=== PATIENT | male | born 1950 | race Caucasian/White ===

== ENCOUNTER 2020-06-02 12:20 | Outpatient (REF) | payer MEDICARE, BC, SELFPAY ==
--- NOTE | 2020-06-02 12:38 | ECG_ITS ---
Test Reason : HTN, CP, UNSPEC Blood Pressure : / mmHG Vent. Rate : 076 BPM Atrial Rate : 076 BPM P-R Int : 178 ms QRS Dur : 078 ms QT Int : 394 ms P-R-T Axes : 058 -58 033 degrees QTc Int : 443 ms Normal sinus rhythm Left anterior fascicular block Abnormal ECG When compared with ECG of 24-JUL-2019 09:44, No significant change was found Referred By: Killian Beltran Electronically Signed By:EMMETT LOPEZ MD
--- NOTE | 2020-06-02 12:52 | XR_ITS ---
EXAMINATION: XR CHEST CLINICAL INFORMATION: Hypertension and chest pain COMPARISON: Previous chest x-ray most recent November 2018 TECHNIQUE: 2 views of the chest were obtained. FINDINGS: The cardiac silhouette does not appear enlarged. The thoracic aorta is tortuous. Hilar and mediastinal contours are otherwise unremarkable. The lungs are clear. There is no pleural effusion or pneumothorax. There are degenerative changes of the spine. IMPRESSION: Tortuous descending thoracic aorta similar to previous exam. No evidence for acute disease in the chest.
[2020-06-02 13:05] LABS: MANUAL DIFF FLAG NO
[2020-06-02 13:11] LABS: Basophils Absolute Auto 0.1 X10*3/uL (0.0-0.2); Basophils Percent Auto 0.6 % (0-2); Eosinophils Absolute Auto 0.2 X10*3/uL (0.0-0.4); Eosinophils Percent Auto 2.1 % (0-4); Hematocrit 42.2 % (42-52); Hemoglobin 14.5 g/dl (14.0-18.0); Imm Gran Abs Auto 0.04 X10*3/uL (0.00-0.03); Imm Gran Pct Auto 0.4 % (0.0-0.4); Lymphocytes Absolute Auto 2.1 X10*3/uL (1.2-4.9); Lymphocytes Percent Auto 23.8 % (20-40); Mean Corpuscular HGB Conc 34.4 g/dl (31.0-36.0); Mean Corpuscular Hemoglobin 31.9 pg (27.0-33.0); Mean Platelet Volume 10.1 fL (9.4-12.4); Monocytes Absolute Auto 0.5 X10*3/uL (0.1-1.2); Monocytes Percent Auto 5.7 % (2-11); Neutrophils Percent Auto 67.4 % (45-73); Platelet Count 255 X10*3/uL (160-400); Red Blood Count 4.54 X10*6/uL (4.60-5.80); Red Cell Distribution Width 12.2 % (11.0-16.0)
[2020-06-02 13:28] LABS: C Reactive Protein 0.31 mg/dL (< or = 0.50)
[2020-06-02 14:23] LABS: Erythrocyte Sedimentation Rate 10 MM/HR (0-15)
== END 2020-06-02 12:21 | disposition home or self-care (01) ==
LOC: HO.LAB 12:20
PROVIDERS: PCP Internal Medicine; Visit Provider Internal Medicine
DX: I10 Essential (primary) hypertension (principal); E78.00 Pure hypercholesterolemia, unspecified; R07.9 Chest pain, unspecified
CPT/HCPCS: 36415; 71046; 85025; 85652; 86140; 93005

== ENCOUNTER → 2020-08-26 13:08 | Outpatient (BNVA) | payer MEDICARE, BC, SELFPAY | PROVIDERS: Visit Provider Urology | DX: Z76.89 Persons encountering health services in other specified circumstances (principal) | CPT/HCPCS: 51798; 81002; 99212 ==

== ENCOUNTER 2020-08-26 14:19 | Outpatient (REF) | payer MEDICARE, BC, SELFPAY ==
[2020-08-26 16:41] LABS: Urine Cytology See Pathology rpt
[2020-08-26 17:15] LABS: Blood Urea Nitrogen 25 mg/dL (9-16); Estimated Glomerular Filt Rate > 60
== END 2020-08-26 14:20 | disposition home or self-care (01) ==
LOC: HO.HMGCLDS 14:19
PROVIDERS: PCP Internal Medicine; Visit Provider Urology
DX: R31.0 Gross hematuria (principal)
CPT/HCPCS: 36415; 51798; 81002; 82565; 84520; 88112; 99212

== ENCOUNTER 2020-08-27 14:45 | Outpatient (REF) | payer MEDICARE, BC, SELFPAY ==
[2020-08-27 14:51] LABS: Urine Cytology See Pathology rpt
== END 2020-08-27 14:46 | disposition home or self-care (01) ==
LOC: HO.LNP 14:45
PROVIDERS: Visit Provider Urology
DX: R31.0 Gross hematuria (principal)
CPT/HCPCS: 88112

== ENCOUNTER 2020-09-04 08:07 | Outpatient (REF) | payer MEDICARE, BC, SELFPAY ==
--- NOTE | 2020-09-04 08:09 | CT_ITS ---
EXAMINATION: CT ABDOMEN AND PELVIS WITHOUT AND WITH CONTRAST CLINICAL INFORMATION: Gross hematuria. COMPARISON: None TECHNIQUE: Multidetector volumetric imaging was performed of the abdomen and pelvis before and after the IV administration of 85 mL of Omnipaque 300 intravenous contrast. Sagittal and coronal reformatted images were obtained on the technologist's workstation. This CT examination was performed using dose optimization techniques as appropriate, variously including the following: *Automated exposure control *Adjustment of mA and/or kV according to patient size (this includes techniques or standardized protocols for targeted exams where dose is matched to indication/reason for exam; i.e. extremities or head) *Use of iterative reconstruction technique DLP: 1282 mGy-cm FINDINGS: LUNG BASES: The lung bases are clear. LIVER, GALLBLADDER, AND BILIARY TREE: The liver is normal in size, shape, and attenuation. No focal hepatic lesion or biliary ductal dilatation is present. The gallbladder is unremarkable with no evidence of radiopaque gallstones, gallbladder wall thickening, or obvious pericholecystic inflammatory changes. PANCREAS: Unremarkable. SPLEEN: Unremarkable. ADRENAL GLANDS: Unremarkable. KIDNEYS AND URETERS: The kidneys are normal in size, shape, and attenuation. No hydronephrosis, hydroureter, or calculi seen. There are bilateral extrarenal kidney pelvises. There is mild bilateral perinephric stranding. BLADDER: There is mild bladder wall thickening. GASTROINTESTINAL TRACT: There is diffuse colonic diverticulosis without intramural thickening or pericolic fat stranding. No bowel obstruction seen. The small bowel loops are normal caliber. There are surgical adelita along the proximal ascending colon likely from previous intervention. ABDOMINAL WALL: Small umbilical hernia containing fat is seen. LYMPH NODES: Normal. VASCULAR: Unremarkable. PELVIC VISCERA: The prostate gland is mildly enlarged. Periprostatic fat planes are preserved. OSSEOUS STRUCTURES: No lytic or sclerotic process seen. Small sclerotic lesions right S3 vertebra. CT/CT abdomen pelvis wo/w con IMPRESSION: A few sigmoid and rest of colon diverticulosis with no mural thickening or pericolic fat stranding. No obstruction. No radiopaque urolith. There are bilateral extrarenal kidney pelvises. No hydronephrosis seen. Appendix is not seen with surgical adelita in its place likely from surgical appendectomy.
[2020-09-04] MEDS: iohexoL 350 MG/ML 100 ML INFUS..BTL 85 ML IV (09:48)
== END 2020-09-04 08:08 | disposition home or self-care (01) ==
LOC: HO.CT 08:07
PROVIDERS: Visit Provider Urology
DX: R31.0 Gross hematuria (principal)
CPT/HCPCS: 74178; Q9967

== ENCOUNTER → 2020-09-11 08:50 | Outpatient (BNVA) | payer MEDICARE, BC, SELFPAY | PROVIDERS: PCP Internal Medicine; Visit Provider Urology | DX: N52.9 Male erectile dysfunction, unspecified (principal); R31.0 Gross hematuria | CPT/HCPCS: 52000; 81002; 99212 ==

== ENCOUNTER 2020-09-28 06:02 | Outpatient (REF) | payer MEDICARE, BC, SELFPAY ==
[2020-09-28 12:31] LABS: Prostate Specific Antigen 2.91 ng/mL (<0.05-4.0)
== END 2020-09-28 06:03 | disposition home or self-care (01) ==
LOC: HO.HMGCLDS 06:02
PROVIDERS: PCP Internal Medicine; Visit Provider Urology
DX: R97.20 Elevated prostate specific antigen [PSA] (principal); Z12.5 Encounter for screening for malignant neoplasm of prostate
CPT/HCPCS: 36415; 84153

== ENCOUNTER 2020-12-14 06:25 | Outpatient (REF) | payer MEDICARE, BC, SELFPAY ==
[2020-12-14 11:27] LABS: MANUAL DIFF FLAG NO
[2020-12-14 11:51] LABS: Basophils Absolute Auto 0.1 X10*3/uL (0.0-0.2); Basophils Percent Auto 0.7 % (0-2); Eosinophils Absolute Auto 0.2 X10*3/uL (0.0-0.4); Eosinophils Percent Auto 1.8 % (0-4); Hematocrit 44.5 % (42-52); Hemoglobin 14.8 g/dl (14.0-18.0); Imm Gran Abs Auto 0.03 X10*3/uL (0.00-0.03); Imm Gran Pct Auto 0.4 % (0.0-0.4); Lymphocytes Absolute Auto 1.7 X10*3/uL (1.2-4.9); Mean Corpuscular HGB Conc 33.3 g/dl (31.0-36.0); Mean Corpuscular Hemoglobin 31.6 pg (27.0-33.0); Mean Corpuscular Volume 94.9 fL (80-98); Mean Platelet Volume 10.6 fL (9.4-12.4); Monocytes Absolute Auto 0.7 X10*3/uL (0.1-1.2); Monocytes Percent Auto 7.9 % (2-11); Neutrophils Absolute Auto 5.8 X10*3/uL (2.0-8.3); Neutrophils Percent Auto 69.2 % (45-73); Platelet Count 246 X10*3/uL (160-400); Red Blood Count 4.69 X10*6/uL (4.60-5.80); Red Cell Distribution Width 12.7 % (11.0-16.0); White Blood Count 8.4 X10*3/uL (4.8-10.8)
[2020-12-14 12:07] LABS: Alanine Aminotransferase 23 U/L (0-40); Albumin Level 4.6 g/dL (3.5-5.0); Alkaline Phosphatase 76 U/L (39-117); Anion Gap 13 (12-20); Aspartate Amino Transferase 18 U/L (5-37); Bilirubin Total 1.3 mg/dL (0.0-1.0); Blood Urea Nitrogen 21 mg/dL (9-16); Calcium 9.3 mg/dL (8.4-10.2); Carbon Dioxide 29 mmol/L (22-29); Chloride 102 mmol/L (96-108); Cholesterol 167 mg/dL; Estimated Glomerular Filt Rate > 60; Glucose Fasting 100 mg/dL (60-99); HDL Cholesterol 44 mg/dL; LDL Cholesterol Calculated 73 mg/dl; Potassium 4.2 mmol/L (3.3-5.1); Sodium 140 mmol/L (135-145); Total Protein 7.2 g/dL (6.5-8.0); Triglycerides 252 mg/dL
== END 2020-12-14 06:26 | disposition home or self-care (01) ==
LOC: HO.HMGCLDS 06:25
PROVIDERS: PCP Internal Medicine; Visit Provider Internal Medicine
DX: I10 Essential (primary) hypertension (principal); E78.00 Pure hypercholesterolemia, unspecified
CPT/HCPCS: 36415; 80053; 80061; 85025

== ENCOUNTER 2021-01-25 08:04 | Outpatient (REF) | payer MEDICARE, BC, SELFPAY | END 2021-01-25 08:05 | disposition home or self-care (01) | LOC: HO.HOSX 08:04 | PROVIDERS: Visit Provider Orthopaedic Surgery | DX: M75.101 Unspecified rotator cuff tear or rupture of right shoulder, not specified as traumatic (principal) | CPT/HCPCS: 20610; 99202; J1100 ==

== ENCOUNTER 2021-02-15 08:16 | Outpatient (REF) | payer MEDICARE, BC, SELFPAY ==
--- NOTE | ~2021-02-15 | XR_ITS ---
EXAMINATION: XR SHOULDER, RIGHT CLINICAL INFORMATION: Pain right shoulder. COMPARISON: None TECHNIQUE: Three views of the right shoulder. FINDINGS: There is no visible acute fracture, dislocation or subluxation. There is lateral acromial enthesophyte. There is mild anterior periarticular spurring AC joint. The soft tissues are normal. XR/XR shoulder RT min 2V IMPRESSION: Right lateral acromial spurring. There is no visible acute fracture, dislocation or subluxation.
== END 2021-02-15 08:17 | disposition home or self-care (01) ==
LOC: HO.HOSX 08:16
PROVIDERS: PCP Internal Medicine; Visit Provider Orthopaedic Surgery
DX: M24.811 Other specific joint derangements of right shoulder, not elsewhere classified (principal)
CPT/HCPCS: 73030; 99212

== ENCOUNTER 2021-02-24 07:17 | Outpatient (REF) | payer MEDICARE, BC, SELFPAY ==
--- NOTE | ~2021-02-24 | MR_ITS ---
EXAMINATION: MR SHOULDER WITHOUT CONTRAST, RIGHT CLINICAL INFORMATION: Right shoulder pain. COMPARISON: Radiographs 02/15/2021 TECHNIQUE: MRI of the shoulder without contrast was performed on a high-field scanner. FINDINGS: ROTATOR CUFF: The supraspinatus tendon is completely torn and retracted to the humeral head apex. The infraspinatus tendon is nearly completely torn and retracted as well, with some superficial fibers remaining attached posteriorly. There is severe subscapularis tendinosis with interstitial insertional and bursal surface partial tearing. The teres minor tendon appears intact. No muscle atrophy or fatty infiltration. BICEPS: Mild longitudinal partial tearing of the biceps tendon as it drapes over the lesser tuberosity into the bicipital groove. CORACOACROMIAL ARCH: The undersurface of the acromion is curved with mild spurring laterally. Moderate hypertrophic acromioclavicular osteoarthritis. LABRUM/CAPSULE: Mild degenerative fraying of the posterior superior labrum. Otherwise intact. GLENOHUMERAL JOINT/MARROW: Moderate glenohumeral joint effusion with mild synovitis. Degenerative spurring and mild edema along the greater tuberosity. There is a degenerative cyst anteriorly. MR/MR shoulder RT wo con IMPRESSION: Completely torn and retracted supraspinatus tendon and near-complete tear with retraction of the infraspinatus tendon. Severe subscapularis tendinopathy with interstitial and bursal surface partial tearing. Mild interstitial longitudinal partial tearing of the proximal biceps tendon. Small subacromial spur laterally. Moderate hypertrophic acromioclavicular osteoarthritis. Moderate glenohumeral joint effusion.
== END 2021-02-24 07:18 | disposition home or self-care (01) ==
LOC: HO.MRI 07:17
PROVIDERS: PCP Internal Medicine; Visit Provider Orthopaedic Surgery
DX: M24.811 Other specific joint derangements of right shoulder, not elsewhere classified (principal)
CPT/HCPCS: 73221

== ENCOUNTER → 2021-03-08 11:55 | Outpatient (BNVA) | payer MEDICARE, BC, SELFPAY | PROVIDERS: PCP Internal Medicine; Visit Provider Orthopaedic Surgery | DX: M75.101 Unspecified rotator cuff tear or rupture of right shoulder, not specified as traumatic (principal) | CPT/HCPCS: 99212 ==

== ENCOUNTER 2021-03-17 10:23 | Day surgery (SDC) | payer MEDICARE, BC, SELFPAY ==
--- NOTE | 2021-03-15 14:05 | P.CONAN_ITS ---
Documented by User: Maritza Pope 03/16/21 08:30 HPI - Anesthesia Eval Consult details Narrative: 70yo M for Right Arthroscopic Rotator Cuff Repair PMFSH Active Problems Active Problems: All Active Problems (Updated 03/08/21 @ 12:50 by Jim Mehta MD) Rotator cuff tear, right (Acute) Internal derangement of right shoulder (Acute) Painful arc syndrome of right shoulder (Acute) Erectile dysfunction (Acute) Gross hematuria (Acute) Past Medical History Medical History BPH (benign prostatic hyperplasia) Diverticulitis Elevated PSA Erectile dysfunction Gross hematuria Left inguinal hernia Recurrent left inguinal hernia Surgical History Surgical History History of appendectomy History of hernia repair History of prostate biopsy Social History Social History Alcohol intake: never Patient Tobacco Use Status: Never used Tobacco Use of substances other than those prescribed or required for medical reasons: No Are you DNR?: No Advance Directives: No Advance Directives Information Provided: Yes Current occupational status: retired Current occupation: right handed. Meds Allergies Allergy/AdvReac Type Severity Reaction Status Date / Time HAYFEVER Allergy Mild ITCHY EYES Uncoded 03/17/21 11:01 Home Medications Medication Instructions Recorded Confirmed Last Taken Type amlodipine 5 mg-benazepril 10 mg 1 cap PO DAILY 08/26/20 08/26/20 03/17/21 05:00 History capsule candesartan 32 1 tab PO DAILY 08/26/20 08/26/20 03/17/21 05:00 History mg-hydrochlorothiazide 12.5 mg tablet finasteride 5 mg tablet 5 mg PO DAILY 08/26/20 08/26/20 Unknown History simvastatin 40 mg tablet 40 mg PO BEDTIME 08/26/20 08/26/20 Unknown History Exam Exam Date and Time: March 15, 2021 140 Pertinent Lab Results Pertinent Lab Results: Laboratory Tests 12/14/20 12/14/20 06:32 06:32 WBC 8.4 Hgb 14.8 Hct 44.5 Plt Count 246 Sodium 140 Potassium 4.2 Chloride 102 Carbon Dioxide 29 BUN 21 H Creatinine 0.91 Narrative Narrative: EKG 05/2020 Vent. Rate : 076 BPM Atrial Rate : 076 BPM P-R Int : 178 ms QRS Dur : 078 ms QT Int : 394 ms P-R-T Axes : 058 -58 033 degrees QTc Int : 443 ms Normal sinus rhythm Left anterior fascicular block Abnormal ECG When compared with ECG of 24-JUL-2019 09:44, No significant change was found Assessment and Plan Assessment Anesthesia Assessment: Chart Reviewed Documented by User: Celsa Dawson 03/17/21 12:06 [facility] Past Medical History Medical History BPH (benign prostatic hyperplasia) Diverticulitis Elevated PSA Erectile dysfunction Gross hematuria Left inguinal hernia Recurrent left inguinal hernia Surgical History Surgical History History of appendectomy History of hernia repair History of prostate biopsy Social History Social History Alcohol intake: never Patient Tobacco Use Status: Never used Tobacco Use of substances other than those prescribed or required for medical reasons: No Are you DNR?: No Advance Directives: No Advance Directives Information Provided: Yes Current occupational status: retired Current occupation: right handed. Meds Allergies Allergy/AdvReac Type Severity Reaction Status Date / Time HAYFEVER Allergy Mild ITCHY EYES Uncoded 03/17/21 11:01 Home Medications Medication Instructions Recorded Confirmed Last Taken Type amlodipine 5 mg-benazepril 10 mg 1 cap PO DAILY 08/26/20 08/26/20 03/17/21 05:00 History capsule candesartan 32 1 tab PO DAILY 08/26/20 08/26/20 03/17/21 05:00 History mg-hydrochlorothiazide 12.5 mg tablet finasteride 5 mg tablet 5 mg PO DAILY 08/26/20 08/26/20 Unknown History simvastatin 40 mg tablet 40 mg PO BEDTIME 08/26/20 08/26/20 Unknown History Exam Airway Mallampati Class: II TM Dist: >3cm Neck ROM: Full Assessment and Plan Assessment Anesthesia Assessment: Anesthesia Plan Discussed and Chart Reviewed Final Anesthetic Review NPO: Yes ASA Class: II Final Preanesthetic Review: No Changes in Pt Med Stat, Meds/Allgs Chart Revie wed, Consent Obtained/Reviewed and Anes Risks/Benef Reviewed Patient Risk: Low Procedure Risk: Low Assessment/Block/Sedation in SS: Assess/Block/Sedation-SS Anesthetic Plan Anesthetic Plan: GA and Regional Block Disposition: Standard PACU
[2021-03-17] VITALS (9 sets, daily range): BP systolic 88–112; BP diastolic 49–67; PULSE 67–81; RESP 16–20; TEMP 36.4–36.7; O2SAT 92–97; BMI 30.9
--- NOTE | 2021-03-17 11:14 | MHC.SHP ---
Pre-Procedural Eval Section A Date of Service: 03/17/21 The patient is an INPATIENT: No Changes since office visit: Yes Patient answered all questions; No Cold of Flu in the past 2 weeks, No New Medical Problems and No Changes in Medication The History & Physical has been completed within 30 days and I have reviewed it.: Yes Section B Chief Complaint: rotator cuff tear Allergies: Allergies Allergy/AdvReac Type Severity Reaction Status Date / Time HAYFEVER Allergy Mild ITCHY EYES Uncoded 03/17/21 11:01 Plan I have reviewed the history and physical and performed a pertinent physical examination on my patient. No changes have occurred unless specified.
[2021-03-17] MEDS: Lactated Ringers 1,000 ML 100 ML IVCONT (11:17)
--- NOTE | 2021-03-17 14:40 | PM.OP ---
Brief Operative Note Date of Service: 03/17/21 Pre-op diagnosis: right rtc tear Procedure: right rtc repair with circumeferential labral debridement and biceps tenotomy Implants: Devlin and nephew helacoil double loaded x3 and PEEK healcoil x 3 Surgeon: Jim Mehta MD Was an Receptionist Scheduler used for this Procedure?: Yes Receptionist Scheduler: Tamara Polk Estimated blood loss (mL): 5 IV fluids (mL): 1,000 Pathology: none sent Condition: stable Disposition: PACU
--- NOTE | 2021-03-25 14:54 | P.OP_ITS ---
Operative Note Operative Note Date of Service: 03/17/21 Narrative: Pre-op diagnosis: right rtc tear Procedure: right rtc repair with circumeferential labral debridement and biceps tenotomy Implants: Devlin and nephew helacoil double loaded x3 and PEEK healcoil x 3 Surgeon: Jim Mehta MD Was an Digital Photographic Printer used for this Procedure?: Yes Digital Photographic Printer: Tamara Polk Estimated blood loss (mL): 5 IV fluids (mL): 1,000 Pathology: none sent Condition: stable Disposition: PACU Procedure in detail: Patient brought the operating placed in the beach chair position and his right upper extremity was prepped and draped in standard sterile fashion. A time-out was called to identify proper site proper procedure proper surgeon IV antibiotics per weight were administered. I began by making a stab incision posterolaterally and placing my blunt trocar atraumatically into the glenohumeral joint. I then insufflated joint stab she outside in anterosuperior portal. I began my diagnostic arthroscopy. There were some scattered grade 1 changes in the glenoid and the biceps and superior labrum were torn approximately 75% at the biceps volume was absent and a biceps tenotomy was performed. I circumferentially debrided the labrum down to stable edges and examined subscapularis which had a small partial tearing of leading edge. I then visualized cuff and there was clear retracted rotator cuff tear. I entered the subacromial space and established an outside in lateral portal. The cuff was retracted but mobile to the footprint. Therefore I debrided any unhealthy appearing tissue and then placed 3 medial row double loaded anchors and ran these through the cuff and then using cross bridge technique compressed the cuff to the footprint using 3 lateral row anchors. I had excellent reproduction of the normal anatomy and was very happy with the repair. Prior to this I did debride down the footprint to bleeding bone. I then examined the construct was satisfied with the stability I. I performed a minimal subacromial decompression and instrumentation was removed and portals were closed with nylon. Patient was placed in sterile dressing extubated brought to recovery room stable condition there were no known complications. He should adhere to a large rotator cuff repair protocol.
== END 2021-03-17 16:55 | disposition home or self-care (01) ==
PROVIDERS: PCP Internal Medicine; Visit Provider Orthopaedic Surgery
PROC: (CPT 29827; principal; 2021-03-17 12:00)
DX: M75.101 Unspecified rotator cuff tear or rupture of right shoulder, not specified as traumatic (principal); M24.9 Joint derangement, unspecified; M75.81 Other shoulder lesions, right shoulder; Z79.899 Other long term (current) drug therapy; Z87.891 Personal history of nicotine dependence
CPT/HCPCS: 29827; 29826; 29822; C1713; J0690; J1100; J2250; J2405; J3010

== ENCOUNTER → 2021-03-29 11:14 | Outpatient (BNVA) | payer MEDICARE, BC, SELFPAY | PROVIDERS: PCP Internal Medicine; Visit Provider Physician Assistant | DX: M75.101 Unspecified rotator cuff tear or rupture of right shoulder, not specified as traumatic (principal) | CPT/HCPCS: 99212 ==

== ENCOUNTER → 2021-04-30 08:37 | Outpatient (BNVA) | payer MEDICARE, BC, SELFPAY | PROVIDERS: PCP Internal Medicine; Visit Provider Physician Assistant | DX: M75.101 Unspecified rotator cuff tear or rupture of right shoulder, not specified as traumatic (principal); M24.811 Other specific joint derangements of right shoulder, not elsewhere classified | CPT/HCPCS: 99212 ==

== ENCOUNTER 2021-05-25 12:32 | Outpatient (REF) | payer MEDICARE, BC, SELFPAY ==
--- NOTE | ~2021-05-25 | XR_ITS ---
EXAMINATION: XR CHEST CLINICAL INFORMATION: Increased sputum production COMPARISON: Chest radiographs 06/02/2020, 12/06/2018 TECHNIQUE: 2 views of the chest were obtained. FINDINGS: There is subtle small airspace opacity just lateral to cardiac apex in region of inferior lingula which may represent early subsegmental infiltrate. The remainder the lungs are clear. There is no lobar segmental airspace consolidation or other groundglass opacities. The costophrenic sulci are well-defined. There is no effusion. The heart is normal in size. The hilar and mediastinal contours are normal. No acute bony abnormality. XR/XR chest 2V IMPRESSION: Probable small airspace opacity inferior lingula left anterior base. No effusion. Suggest follow-up imaging in 4-8 weeks to confirm resolution.
[2021-05-25 13:46] LABS: MANUAL DIFF FLAG NO
[2021-05-25 13:50] LABS: Basophils Absolute Auto 0.1 X10*3/uL (0.0-0.2); Basophils Percent Auto 0.7 % (0-2); Eosinophils Absolute Auto 0.3 X10*3/uL (0.0-0.4); Eosinophils Percent Auto 3.2 % (0-4); Hematocrit 41.1 % (42-52); Hemoglobin 14.6 g/dl (14.0-18.0); Imm Gran Abs Auto 0.04 X10*3/uL (0.00-0.03); Imm Gran Pct Auto 0.5 % (0.0-0.4); Lymphocytes Absolute Auto 2.2 X10*3/uL (1.2-4.9); Lymphocytes Percent Auto 26.7 % (20-40); Mean Corpuscular HGB Conc 35.5 g/dl (31.0-36.0); Mean Corpuscular Hemoglobin 32.8 pg (27.0-33.0); Mean Corpuscular Volume 92.4 fL (80-98); Mean Platelet Volume 10.3 fL (9.4-12.4); Monocytes Absolute Auto 0.7 X10*3/uL (0.1-1.2); Monocytes Percent Auto 8.1 % (2-11); Neutrophils Absolute Auto 5.1 X10*3/uL (2.0-8.3); Neutrophils Percent Auto 60.8 % (45-73); Platelet Count 258 X10*3/uL (160-400); Red Blood Count 4.45 X10*6/uL (4.60-5.80); Red Cell Distribution Width 13.3 % (11.0-16.0); White Blood Count 8.4 X10*3/uL (4.8-10.8)
[2021-05-25 14:20] LABS: Alanine Aminotransferase 31 U/L (0-40); Albumin Level 4.4 g/dL (3.5-5.0); Alkaline Phosphatase 85 U/L (39-117); Anion Gap 14 (12-20); Aspartate Amino Transferase 23 U/L (5-37); Bilirubin Total 0.5 mg/dL (0.0-1.0); Blood Urea Nitrogen 17 mg/dL (9-16); C Reactive Protein 0.67 mg/dL (< or = 0.50); Calcium 9.9 mg/dL (8.4-10.2); Carbon Dioxide 29 mmol/L (22-29); Chloride 103 mmol/L (96-108); Estimated Glomerular Filt Rate > 60; Glucose Random 124 mg/dL (60-115); Potassium 3.9 mmol/L (3.3-5.1); Sodium 142 mmol/L (135-145); Total Protein 7.5 g/dL (6.5-8.0)
[2021-05-25 14:32] LABS: Erythrocyte Sedimentation Rate 11 MM/HR (0-15)
== END 2021-05-25 12:33 | disposition home or self-care (01) ==
LOC: HO.HMGCX 12:32
PROVIDERS: PCP Internal Medicine; Visit Provider Internal Medicine
DX: R09.3 Abnormal sputum (principal); Z20.822 Contact with and (suspected) exposure to COVID-19
CPT/HCPCS: 71046; 80053; 85025; 85652; 86140; C9803; U0003; U0005

== ENCOUNTER → 2021-06-11 08:35 | Outpatient (BNVA) | payer MEDICARE, BC, SELFPAY | PROVIDERS: PCP Internal Medicine; Visit Provider Physician Assistant | DX: Z98.890 Other specified postprocedural states (principal); J30.1 Allergic rhinitis due to pollen | CPT/HCPCS: 99212 ==

== ENCOUNTER 2021-06-15 06:01 | Outpatient (REF) | payer MEDICARE, BC, SELFPAY ==
--- NOTE | ~2021-06-15 | XR_ITS ---
EXAMINATION: XR CHEST CLINICAL INFORMATION: Hypertension COMPARISON: Previous chest x-ray most recent 05/25/2021 TECHNIQUE: 2 views of the chest were obtained. FINDINGS: The cardiac silhouette does not appear enlarged. The thoracic aorta is tortuous. Hilar and mediastinal contours are otherwise unremarkable. There is mild right apical pleural thickening that is stable. The lungs are otherwise clear. There is no pleural effusion or pneumothorax. There are degenerative changes of the spine. XR/XR chest 2V IMPRESSION: No evidence for acute disease in the chest.
[2021-06-15 11:24] LABS: MANUAL DIFF FLAG NO
[2021-06-15 11:30] LABS: Appearance Urine TURBID; Color Urine YELLOW; Glucose Urine UA NEG (NEG); Leukocyte Esterase Urine NEG (NEG); Nitrite Urine NEG (NEG); Specific Gravity - Urine >= 1.030 (1.005-1.025); Urine Blood NEG (NEG); Urine Ketones NEG (NEG); Urine Protein NEG (NEG-TRACE)
[2021-06-15 11:35] LABS: Basophils Absolute Auto 0.1 X10*3/uL (0.0-0.2); Basophils Percent Auto 0.6 % (0-2); Eosinophils Absolute Auto 0.2 X10*3/uL (0.0-0.4); Eosinophils Percent Auto 1.8 % (0-4); Hematocrit 42.8 % (42-52); Hemoglobin 14.5 g/dl (14.0-18.0); Imm Gran Abs Auto 0.04 X10*3/uL (0.00-0.03); Imm Gran Pct Auto 0.4 % (0.0-0.4); Lymphocytes Absolute Auto 1.9 X10*3/uL (1.2-4.9); Lymphocytes Percent Auto 19.7 % (20-40); Mean Corpuscular HGB Conc 33.9 g/dl (31.0-36.0); Mean Corpuscular Hemoglobin 31.6 pg (27.0-33.0); Mean Corpuscular Volume 93.2 fL (80-98); Mean Platelet Volume 10.9 fL (9.4-12.4); Monocytes Absolute Auto 0.7 X10*3/uL (0.1-1.2); Monocytes Percent Auto 7.5 % (2-11); Neutrophils Absolute Auto 6.9 X10*3/uL (2.0-8.3); Platelet Count 281 X10*3/uL (160-400); Red Blood Count 4.59 X10*6/uL (4.60-5.80); Red Cell Distribution Width 12.7 % (11.0-16.0); White Blood Count 9.8 X10*3/uL (4.8-10.8)
[2021-06-15 11:51] LABS: Alanine Aminotransferase 29 U/L (0-40); Albumin Level 4.4 g/dL (3.5-5.0); Alkaline Phosphatase 74 U/L (39-117); Anion Gap 13 (12-20); Aspartate Amino Transferase 23 U/L (5-37); Blood Urea Nitrogen 18 mg/dL (9-16); C Reactive Protein 3.34 mg/dL (< or = 0.50); Calcium 9.3 mg/dL (8.4-10.2); Carbon Dioxide 26 mmol/L (22-29); Chloride 104 mmol/L (96-108); Cholesterol 169 mg/dL; Estimated Glomerular Filt Rate > 60; Glucose Fasting 104 mg/dL (60-99); HDL Cholesterol 44 mg/dL; LDL Cholesterol Calculated 82 mg/dl; Sodium 139 mmol/L (135-145); Total Protein 7.2 g/dL (6.5-8.0); Triglycerides 218 mg/dL
[2021-06-15 11:52] LABS: Amorphous Sediment Urine 4+ /LPF; RBC Urine 0 /HPF (0); WBC Urine 0 /HPF (0-4)
[2021-06-15 12:03] LABS: PSA,Total (Free>4and<10) 2.89 ng/mL (0.00-4.00); Thyroid Stimulating Hormone 2.81 uIU/mL (0.32-4.0); Vitamin D 25-OH Total 37.7 ng/mL (>30)
[2021-06-15 12:38] LABS: Erythrocyte Sedimentation Rate 26 MM/HR (0-15)
== END 2021-06-15 06:02 | disposition home or self-care (01) ==
LOC: HO.HMGCX 06:01
PROVIDERS: PCP Internal Medicine; Visit Provider Internal Medicine
DX: Z12.5 Encounter for screening for malignant neoplasm of prostate (principal); I10 Essential (primary) hypertension; E78.00 Pure hypercholesterolemia, unspecified; N40.0 Benign prostatic hyperplasia without lower urinary tract symptoms
CPT/HCPCS: 36415; 71046; 80053; 80061; 81001; 82306; 84153; 84443; 85025; 85652; 86140

== ENCOUNTER 2021-07-21 06:01 | Outpatient (REF) | payer MEDICARE, BC, SELFPAY ==
[2021-07-21 12:34] LABS: Prostate Specific Antigen 2.96 ng/mL (<0.05-4.0)
== END 2021-07-21 06:02 | disposition home or self-care (01) ==
LOC: HO.HMGCLDS 06:01
PROVIDERS: PCP Internal Medicine; Visit Provider Urology
DX: Z12.5 Encounter for screening for malignant neoplasm of prostate (principal); R97.20 Elevated prostate specific antigen [PSA]
CPT/HCPCS: 36415; 84153

== ENCOUNTER → 2021-08-06 09:20 | Outpatient (BNVA) | payer MEDICARE, BC, SELFPAY | PROVIDERS: PCP Internal Medicine; Visit Provider Physician Assistant | DX: Z47.89 Encounter for other orthopedic aftercare (principal); Z98.890 Other specified postprocedural states | CPT/HCPCS: 99212 ==

== ENCOUNTER 2021-08-09 07:00 | Outpatient (RCR) | payer MEDICARE, BC, SELFPAY ==
--- NOTE | 2021-03-25 15:15 | MHC.PT.EP ---
[facility] [place] Office [place] Office [place] Office [address] [phone] F: [phone] F: [phone] F: [phone] F: [phone] Physical Therapy Plan of Care Date of Evaluation: Date of Surgery: 03/17/21 Diagnosis: R rotator cuff repair Assessment: Patient is a 70 year old R handed male who presents with s/s consistent with R rotator cuff repair. He is not currently working but would like to get back to golf and biking. Patient past medical history includes L rotator cuff repair 1.5-2 years ago. Current impairments include pain, ROM, posture, strength, safety, independence, activity tolerance and functional mobility. Functional limitations include decreased ability to reach, lift, carry, push, pull, sleep, dress, bathe, and perform weight bearing activities.. Patient is motivated with good rehab potential. Skilled PT will address impairments and functional limitations in order to achieve goals. Frequency and Duration: The patient will be seen 2x/week for 8 weeks Short Term Goals: I with HEP - 2 week PROM flexion 120, abd 120 - 5 weeks I with self care, infection free - 3 weeks Jail Goals: Strength 4-/5 - 8 weeks Able to demonstrated 140 AROM flexion without UT compensation - 8 weeks Treatment Plan: Modalities to reduce pain, spasms and effusion. Manual therapy to restore motion and function. Therapeutic exercise to improve strength and flexibility. Neuromuscular re-education for posture and balance. Therapeutic activities to return to functional activities of daily living. Electronically signed by: Zohaib Henriquez, PT Please sign and return to therapist. Thank you for your referral.
--- NOTE | 2021-09-10 07:36 | MHC.PT.DC ---
[facility] [place] Office [place] Office [place] Office [address] [phone] F: [phone] F: [phone] F: [phone] F: [phone] Physical Therapy Discharge Report Diagnosis: R rotator cuff repair Date of Surgery: 03/17/21 Date of Evaluation: 03/24/21 Date of Discharge: 08/25/21 Treatments to Date: 34 Cancellations to Date: 0 No Shows to Date: 0 Discharge Status: Achieved Goals Independent with HEP Discharge Summary: Pt progressed very well with no setbacks over the course of skilled PT. He is I with HEP and will continue at home to progress towards functional activities such as golf and reaching into cabinets. All questions answered and no concerns at this time. Electronically signed by: Zohaib Henriquez, PT Please sign and return to therapist. Thank you for your referral.
== END 2021-08-25 08:00 | disposition home or self-care (01) ==
LOC: HO.PTCHIC 07:00
PROVIDERS: Visit Provider Orthopaedic Surgery
DX: M75.101 Unspecified rotator cuff tear or rupture of right shoulder, not specified as traumatic (principal)
CPT/HCPCS: 97110; 97140; 97162

== ENCOUNTER 2021-11-26 06:02 | Outpatient (REF) | payer MEDICARE, BC, SELFPAY ==
[2021-11-26 11:43] LABS: MANUAL DIFF FLAG NO
[2021-11-26 11:51] LABS: Basophils Absolute Auto 0.1 X10*3/uL (0.0-0.2); Basophils Percent Auto 0.6 % (0-2); Eosinophils Absolute Auto 0.2 X10*3/uL (0.0-0.4); Eosinophils Percent Auto 2.6 % (0-4); Hematocrit 42.9 % (42.0-52.0); Hemoglobin 14.5 g/dl (14.0-18.0); Imm Gran Abs Auto 0.02 X10*3/uL (0.00-0.03); Imm Gran Pct Auto 0.2 % (0.0-0.4); Lymphocytes Absolute Auto 2.1 X10*3/uL (1.2-4.9); Lymphocytes Percent Auto 25.8 % (20-40); Mean Corpuscular HGB Conc 33.8 g/dl (31.0-36.0); Mean Corpuscular Hemoglobin 31.7 pg (27.0-33.0); Mean Corpuscular Volume 93.9 fL (80.0-98.0); Monocytes Absolute Auto 0.7 X10*3/uL (0.1-1.2); Monocytes Percent Auto 8.2 % (2-11); Neutrophils Absolute Auto 5.1 x10*3/uL (2.0-8.3); Neutrophils Percent Auto 62.6 % (45-73); Platelet Count 248 X10*3/uL (160-400); Red Blood Count 4.57 X10*6/uL (4.60-5.80); Red Cell Distribution Width 13.2 % (11.0-16.0); White Blood Count 8.1 X10*3/uL (4.8-10.8)
[2021-11-26 12:20] LABS: Alanine Aminotransferase 26 U/L (0-40); Albumin Level 4.3 g/dL (3.5-5.0); Alkaline Phosphatase 73 U/L (39-117); Anion Gap 14 (12-20); Aspartate Amino Transferase 20 U/L (5-37); Bilirubin Total 0.9 mg/dL (0.0-1.0); Blood Urea Nitrogen 25 mg/dL (9-16); C Reactive Protein 0.41 mg/dL (< or = 0.50); Carbon Dioxide 22 mmol/L (22-29); Chloride 107 mmol/L (96-108); Cholesterol 171 mg/dL; Estimated Glomerular Filt Rate > 60; Glucose Fasting 96 mg/dL (60-99); HDL Cholesterol 41 mg/dL; LDL Cholesterol Calculated 71 mg/dl; Potassium 3.8 mmol/L (3.3-5.1); Sodium 139 mmol/L (135-145); Triglycerides 296 mg/dL
[2021-11-26 12:30] LABS: Erythrocyte Sedimentation Rate 7 MM/HR (0-15)
[2021-11-26 12:45] LABS: Thyroid Stimulating Hormone 2.93 uIU/mL (0.32-4.0); Vitamin D 25-OH Total 38.4 ng/mL (>30)
== END 2021-11-26 06:03 | disposition home or self-care (01) ==
LOC: HO.HMGCLDS 06:02
PROVIDERS: PCP Internal Medicine; Visit Provider Internal Medicine
DX: I10 Essential (primary) hypertension (principal)
CPT/HCPCS: 36415; 80053; 80061; 82306; 84443; 85025; 85652; 86140

== ENCOUNTER 2022-05-05 07:00 | Outpatient (RCR) | payer MEDICARE, BC, SELFPAY | END 2022-08-03 07:41 | disposition home or self-care (01) | LOC: HO.PTCHIC 07:00 | PROVIDERS: PCP Internal Medicine; Visit Provider Internal Medicine | DX: S76.912A Strain of unspecified muscles, fascia and tendons at thigh level, left thigh, initial encounter (principal) | CPT/HCPCS: 97110; 97140; 97162 ==

== ENCOUNTER 2022-06-24 10:16 | Outpatient (REF) | payer MEDICARE, BC, SELFPAY ==
--- NOTE | ~2022-06-24 | XR_ITS ---
EXAMINATION: XR CHEST CLINICAL INFORMATION: Cough COMPARISON: Previous chest x-ray most recent May 2021 TECHNIQUE: 2 views of the chest were obtained. FINDINGS: The cardiac and mediastinal contours are stable. The thoracic aorta is slightly tortuous but unchanged. Hilar contours are otherwise unremarkable. The lungs are clear. No pleural effusion or pneumothorax. There are degenerative changes of the spine. XR/XR chest 2V IMPRESSION: No evidence for acute disease in the chest.
[2022-06-24 11:27] LABS: MANUAL DIFF FLAG NO
[2022-06-24 11:50] LABS: Basophils Percent Auto 0.5 % (0-2); Eosinophils Absolute Auto 0.2 X10*3/uL (0.0-0.4); Eosinophils Percent Auto 1.9 % (0-4); Hematocrit 39.8 % (42.0-52.0); Hemoglobin 14.1 g/dl (14.0-18.0); Imm Gran Abs Auto 0.05 X10*3/uL (0.00-0.03); Imm Gran Pct Auto 0.6 % (0.0-0.4); Lymphocytes Absolute Auto 1.9 X10*3/uL (1.2-4.9); Lymphocytes Percent Auto 21.7 % (20-40); Mean Corpuscular HGB Conc 35.4 g/dl (31.0-36.0); Mean Corpuscular Hemoglobin 31.9 pg (27.0-33.0); Mean Platelet Volume 10.6 fL (9.4-12.4); Monocytes Absolute Auto 0.7 X10*3/uL (0.1-1.2); Monocytes Percent Auto 8.3 % (2-11); Neutrophils Absolute Auto 5.8 x10*3/uL (2.0-8.3); Platelet Count 265 X10*3/uL (160-400); Red Blood Count 4.42 X10*6/uL (4.60-5.80); Red Cell Distribution Width 12.1 % (11.0-16.0); White Blood Count 8.6 X10*3/uL (4.8-10.8)
[2022-06-24 12:17] LABS: Alanine Aminotransferase 29 U/L (0-40); Albumin Level 4.4 g/dL (3.5-5.0); Alkaline Phosphatase 77 U/L (39-117); Anion Gap 16 (12-20); Aspartate Amino Transferase 24 U/L (5-37); Bilirubin Total 0.6 mg/dL (0.0-1.0); Blood Urea Nitrogen 24 mg/dL (9-16); Calcium 9.3 mg/dL (8.4-10.2); Carbon Dioxide 23 mmol/L (22-29); Chloride 104 mmol/L (96-108); Estimated Glomerular Filt Rate > 60; Glucose Random 104 mg/dL (60-115); Sodium 139 mmol/L (135-145); Total Protein 7.4 g/dL (6.5-8.0)
== END 2022-06-24 10:17 | disposition home or self-care (01) ==
LOC: HO.HMGCX 10:16
PROVIDERS: PCP Internal Medicine; Visit Provider Internal Medicine
DX: R05.9 Cough, unspecified (principal)
CPT/HCPCS: 36415; 71046; 80053; 85025

== ENCOUNTER 2022-06-29 06:02 | Outpatient (REF) | payer MEDICARE, BC, SELFPAY ==
[2022-06-29 11:24] LABS: MANUAL DIFF FLAG NO
[2022-06-29 11:31] LABS: Basophils Absolute Auto 0.1 X10*3/uL (0.0-0.2); Basophils Percent Auto 0.6 % (0-2); Eosinophils Absolute Auto 0.2 X10*3/uL (0.0-0.4); Eosinophils Percent Auto 2.9 % (0-4); Hematocrit 42.3 % (42.0-52.0); Hemoglobin 14.4 g/dl (14.0-18.0); Imm Gran Abs Auto 0.02 X10*3/uL (0.00-0.03); Imm Gran Pct Auto 0.2 % (0.0-0.4); Lymphocytes Percent Auto 23.3 % (20-40); Mean Corpuscular Hemoglobin 31.3 pg (27.0-33.0); Mean Platelet Volume 11.2 fL (9.4-12.4); Monocytes Absolute Auto 0.7 X10*3/uL (0.1-1.2); Monocytes Percent Auto 8.4 % (2-11); Neutrophils Absolute Auto 5.4 x10*3/uL (2.0-8.3); Neutrophils Percent Auto 64.6 % (45-73); Platelet Count 246 X10*3/uL (160-400); Red Cell Distribution Width 12.4 % (11.0-16.0); White Blood Count 8.4 X10*3/uL (4.8-10.8)
[2022-06-29 12:01] LABS: Alanine Aminotransferase 26 U/L (0-40); Albumin Level 4.4 g/dL (3.5-5.0); Alkaline Phosphatase 68 U/L (39-117); Anion Gap 17 (12-20); Aspartate Amino Transferase 21 U/L (5-37); Bilirubin Total 0.7 mg/dL (0.0-1.0); Blood Urea Nitrogen 25 mg/dL (9-16); Calcium 9.1 mg/dL (8.4-10.2); Carbon Dioxide 24 mmol/L (22-29); Chloride 105 mmol/L (96-108); Cholesterol 198 mg/dL; Estimated Glomerular Filt Rate > 60; Glucose Random 94 mg/dL (60-115); HDL Cholesterol 42 mg/dL; LDL Cholesterol Calculated 85 mg/dl; Sodium 142 mmol/L (135-145); Total Protein 7.3 g/dL (6.5-8.0); Triglycerides 356 mg/dL
== END 2022-06-29 06:03 | disposition home or self-care (01) ==
LOC: HO.HMGCLDS 06:02
PROVIDERS: PCP Internal Medicine; Visit Provider Internal Medicine
DX: R05.9 Cough, unspecified (principal); E78.00 Pure hypercholesterolemia, unspecified
CPT/HCPCS: 36415; 80053; 80061; 85025

== ENCOUNTER 2022-12-26 06:03 | Outpatient (REF) | payer MEDICARE, BC, SELFPAY ==
[2022-12-26 11:33] LABS: MANUAL DIFF FLAG NO
[2022-12-26 11:40] LABS: Basophils Absolute Auto 0.1 X10*3/uL (0.0-0.2); Eosinophils Absolute Auto 0.2 X10*3/uL (0.0-0.4); Eosinophils Percent Auto 3.2 % (0-4); Hematocrit 43.8 % (42.0-52.0); Hemoglobin 14.9 g/dl (14.0-18.0); Imm Gran Abs Auto 0.02 X10*3/uL (0.00-0.03); Imm Gran Pct Auto 0.3 % (0.0-0.4); Lymphocytes Percent Auto 29.1 % (20-40); Mean Corpuscular Hemoglobin 31.7 pg (27.0-33.0); Mean Corpuscular Volume 93.2 fL (80.0-98.0); Mean Platelet Volume 10.7 fL (9.4-12.4); Monocytes Absolute Auto 0.5 X10*3/uL (0.1-1.2); Monocytes Percent Auto 7.3 % (2-11); Neutrophils Absolute Auto 4.1 x10*3/uL (2.0-8.3); Neutrophils Percent Auto 59.1 % (45-73); Platelet Count 231 X10*3/uL (160-400); Red Cell Distribution Width 12.8 % (11.0-16.0); White Blood Count 6.9 X10*3/uL (4.8-10.8)
[2022-12-26 12:13] LABS: Alanine Aminotransferase 21 U/L (0-40); Albumin Level 4.2 g/dL (3.5-5.0); Alkaline Phosphatase 71 U/L (39-117); Anion Gap 13 (12-20); Aspartate Amino Transferase 21 U/L (5-37); Bilirubin Total 1.1 mg/dL (0.0-1.0); Blood Urea Nitrogen 21 mg/dL (9-16); Calcium 9.2 mg/dL (8.4-10.2); Carbon Dioxide 26 mmol/L (22-29); Chloride 106 mmol/L (96-108); Cholesterol 170 mg/dL; Estimated Glomerular Filt Rate > 60; Glucose Fasting 101 mg/dL (60-99); HDL Cholesterol 45 mg/dL; LDL Cholesterol Calculated 92 mg/dl; Potassium 4.2 mmol/L (3.3-5.1); Sodium 141 mmol/L (135-145); Total Protein 6.9 g/dL (6.5-8.0); Triglycerides 167 mg/dL
== END 2022-12-26 06:04 | disposition home or self-care (01) ==
LOC: HO.HMGCLDS 06:03
PROVIDERS: PCP Internal Medicine; Visit Provider Internal Medicine
DX: E78.00 Pure hypercholesterolemia, unspecified (principal); I10 Essential (primary) hypertension
CPT/HCPCS: 36415; 80053; 80061; 85025

== ENCOUNTER 2023-05-12 09:14 | Outpatient (REF) | payer MEDICARE, BC, SELFPAY ==
--- NOTE | ~2023-05-12 | XR_ITS ---
EXAMINATION: XR KNEE, BILATERAL XR KNEE, RIGHT CLINICAL INFORMATION: Knee pain. COMPARISON: None available. TECHNIQUE: AP bilateral knees 1 view. Right knee 2 views. FINDINGS: Right Knee: Tricompartment marginal osteophytes. Moderate medial compartment arthritis. Moderate-severe patellofemoral compartment arthritis. No effusion. No acute fracture or dislocation. Small ossification posterior to the joint, could reflect a fabella or a loose body. Left Knee: Single frontal view. Moderate medial compartment narrowing. Marginal osteophytes in the medial and lateral compartment. No acute findings. XR/XR knee standing BI IMPRESSION: Right Knee: Tricompartment osteoarthritis. Moderate medial and moderate-severe patellofemoral arthritis. Small posterior ossification could represent a fabella or loose body.
--- NOTE | ~2023-05-12 | XR_ITS ---
EXAMINATION: XR KNEE, BILATERAL XR KNEE, RIGHT CLINICAL INFORMATION: Knee pain. COMPARISON: None available. TECHNIQUE: AP bilateral knees 1 view. Right knee 2 views. FINDINGS: Right Knee: Tricompartment marginal osteophytes. Moderate medial compartment arthritis. Moderate-severe patellofemoral compartment arthritis. No effusion. No acute fracture or dislocation. Small ossification posterior to the joint, could reflect a fabella or a loose body. Left Knee: Single frontal view. Moderate medial compartment narrowing. Marginal osteophytes in the medial and lateral compartment. No acute findings. XR/XR knee RT 2V IMPRESSION: Right Knee: Tricompartment osteoarthritis. Moderate medial and moderate-severe patellofemoral arthritis. Small posterior ossification could represent a fabella or loose body.
== END 2023-05-12 09:15 | disposition home or self-care (01) ==
LOC: HO.HOSX 09:14
PROVIDERS: Visit Provider Orthopaedic Surgery
DX: M17.0 Bilateral primary osteoarthritis of knee (principal)
CPT/HCPCS: 73560; 73565; 99212

== ENCOUNTER 2023-05-12 11:30 | Outpatient (AMB) | payer MEDICARE, BC, SELFPAY ==
--- NOTE | 2023-05-12 10:44 | A.OFFVIS_ITS ---
Intake Intake Visit Reasons: New Prob- Right knee pain Intake Note: Kaushik is a 73 year old male who presents today for a new problem visit with complaints of right knee pain. Patient reports that he has had significant pain in his right knee about 2 weeks. He reports that he was having significant increased pain, worse with ambulation and stairs. He has some mils swelling on the medial aspect of the knee which is where his pain is located. He explains that his pain has improved since the episode. Allergies HAYFEVER Allergy (Mild, Uncoded 03/29/21 11:21) ITCHY EYES HPI New Prob- Right knee pain HPI Details Kaushik is a 73 year old man who presents with complaints of right knee pain. He has pain with daily activity, worse with activity. He feels better now. He has long-standing knee OA [facility] Medical History Erectile dysfunction Gross hematuria Diverticulitis Elevated PSA BPH (benign prostatic hyperplasia) Recurrent left inguinal hernia Left inguinal hernia Surgical History History of appendectomy History of hernia repair History of prostate biopsy Social History Alcohol intake: never Patient Tobacco Use Status: Never used Tobacco Current occupational status: retired Current occupation: right handed. Review of Systems Const All systems reviewed & are unremarkable except as noted in HPI and below Physical Exam Const General: no acute distress, alert and awake Orientation/consciousness: patient oriented x3 HEENT Head: Yes normocephalic and Yes atraumatic Eyes EOM: EOMs intact bilaterally Resp Effort & Inspection: normal respiratory effort and able to speak in complete sentences Cardio Jugular venous distension: no JVD Skin General skin exam: turgor normal Rashes: no rashes Neuro General: patient oriented x3 Extrem Other: Right Knee: No effusion Dull medial ttp bilaterally Psych Appearance: grossly normal Affect: normal affect Attitude: cooperative Results Reviewed Results Reviewed: I personally reviewed relevant radiographs. Moderate to severe bilateral knee OA Assessment & Plan Assessment & Plan (1) Arthritis of both knees: Code(s): M17.0 - Bilateral primary osteoarthritis of knee Orders: Orders XR knee standing BI 05/12/23 M25.569 - Pain in unspecified knee XR knee RT 2V 05/12/23 M25.569 - Pain in unspecified knee Coding Level of Care Code Est Pt Level 3 (06970) Diagnoses Arthritis of both knees M17.0
== END 2023-05-12 11:58 | disposition home or self-care (01) ==
PROVIDERS: PCP Internal Medicine; Visit Provider Orthopaedic Surgery
DX: M17.0 Bilateral primary osteoarthritis of knee (principal)
CPT/HCPCS: 99213

== ENCOUNTER 2023-06-30 06:17 | Outpatient (REF) | payer MEDICARE, BC, SELFPAY ==
[2023-06-30 11:27] LABS: MANUAL DIFF FLAG NO
[2023-06-30 11:41] LABS: Basophils Absolute Auto 0.1 X10*3/uL (0.0-0.2); Basophils Percent Auto 0.6 % (0-2); Eosinophils Absolute Auto 0.2 X10*3/uL (0.0-0.4); Eosinophils Percent Auto 2.3 % (0-4); Hematocrit 46.2 % (42.0-52.0); Hemoglobin 15.8 g/dl (14.0-18.0); Imm Gran Abs Auto 0.02 X10*3/uL (0.00-0.03); Imm Gran Pct Auto 0.3 % (0.0-0.4); Lymphocytes Absolute Auto 1.8 X10*3/uL (1.2-4.9); Lymphocytes Percent Auto 22.8 % (20-40); Mean Corpuscular HGB Conc 34.2 g/dl (31.0-36.0); Mean Corpuscular Hemoglobin 31.7 pg (27.0-33.0); Mean Corpuscular Volume 92.8 fL (80.0-98.0); Mean Platelet Volume 11.1 fL (9.4-12.4); Monocytes Absolute Auto 0.6 X10*3/uL (0.1-1.2); Monocytes Percent Auto 7.8 % (2-11); Neutrophils Absolute Auto 5.2 x10*3/uL (2.0-8.3); Neutrophils Percent Auto 66.2 % (45-73); Platelet Count 233 X10*3/uL (160-400); Red Blood Count 4.98 X10*6/uL (4.60-5.80); Red Cell Distribution Width 12.9 % (11.0-16.0); White Blood Count 7.8 X10*3/uL (4.8-10.8)
[2023-06-30 12:30] LABS: Alanine Aminotransferase 21 U/L (0-40); Albumin Level 4.6 g/dL (3.5-5.0); Alkaline Phosphatase 70 U/L (39-117); Anion Gap 13 (12-20); Aspartate Amino Transferase 23 U/L (5-37); Blood Urea Nitrogen 23 mg/dL (9-16); Carbon Dioxide 29 mmol/L (22-29); Chloride 104 mmol/L (96-108); Cholesterol 198 mg/dL (<200); Estimated Glomerular Filt Rate > 60; Glucose Fasting 108 mg/dL (60-99); HDL Cholesterol 53 mg/dL (>40); LDL Cholesterol Calculated 96 mg/dL (<100); Potassium 4.7 mmol/L (3.3-5.1); Sodium 141 mmol/L (135-145); Thyroid Stimulating Hormone 2.55 uIU/mL (0.32-4.0); Total Protein 7.8 g/dL (6.5-8.0); Triglycerides 249 mg/dL (<150)
== END 2023-06-30 06:18 | disposition home or self-care (01) ==
LOC: HO.HMGCLDS 06:17
PROVIDERS: PCP Internal Medicine; Visit Provider Internal Medicine
DX: I10 Essential (primary) hypertension (principal); E78.00 Pure hypercholesterolemia, unspecified; N40.0 Benign prostatic hyperplasia without lower urinary tract symptoms; Z12.5 Encounter for screening for malignant neoplasm of prostate
CPT/HCPCS: 36415; 80053; 80061; 84153; 84443; 85025

== ENCOUNTER 2023-08-11 06:18 | Day surgery (SDC) | payer MEDICARE, BC, SELFPAY ==
[2023-08-09 10:29] VITALS: BMI 31.4
--- NOTE | 2023-08-09 14:59 | P.CONAN_ITS ---
Documented by User: Maritza Pope NP 08/09/23 14:59 HPI - Anesthesia Eval Consult details Narrative: 73yo M for Colonoscopy PMFSH Active Problems Active Problems: All Active Problems (Updated 08/09/23 @ 10:24 by Shantal Negron RN) Arthritis of both knees (Acute) S/P right rotator cuff repair (Acute) Rotator cuff tear, right (Acute) Internal derangement of right shoulder (Acute) Painful arc syndrome of right shoulder (Acute) Erectile dysfunction (Acute) Gross hematuria (Acute) Past Medical History Medical History Elevated cholesterol HTN (hypertension) Diverticulosis Erectile dysfunction Gross hematuria Diverticulitis Elevated PSA BPH (benign prostatic hyperplasia) Recurrent left inguinal hernia Left inguinal hernia Surgical History Surgical History Hx of transurethral resection of prostate Hx of basal cell carcinoma excision Hx of rotator cuff surgery Hx of colonoscopy History of appendectomy History of hernia repair History of prostate biopsy Social History Social History Alcohol intake: never Patient Tobacco Use Status: Never used Tobacco Are you DNR?: No Advance Directives: No Advance Directives Information Provided: Yes Advance Directives on File: No Nutrition Risks: No Nutritional Risk Current occupational status: retired Current occupation: right handed. Meds Allergies Allergy/AdvReac Type Severity Reaction Status Date / Time HAYFEVER Allergy Mild ITCHY EYES Uncoded 03/29/21 11:21 Home Medications Medication Instructions Recorded Confirmed Last Taken Type amlodipine 5 mg-benazepril 10 mg 1 cap PO DAILY 08/26/20 08/09/23 08/11/23 Hi story capsule candesartan 32 1 tab PO DAILY 08/26/20 08/09/23 08/11/23 History mg-hydrochlorothiazide 12.5 mg tablet finasteride 5 mg tablet 5 mg PO DAILY 08/26/20 08/09/23 Unknown History simvastatin 40 mg tablet 40 mg PO BEDTIME 08/26/20 08/09/23 Unknown History Vitamin C 08/09/23 Unknown History multivitamin 1 tab PO DAILY 08/09/23 08/09/23 Unknown History Exam Height,Weight and Vital Signs: Height 6 ft 1 in Weight 107.955 kg Pertinent Lab Results Pertinent Lab Results: Laboratory Tests 06/30/23 06:24 WBC 7.8 Hgb 15.8 Hct 46.2 Plt Count 233 Sodium 141 Potassium 4.7 Chloride 104 Carbon Dioxide 29 BUN 23 H Creatinine 0.94 Assessment and Plan Assessment Anesthesia Assessment: Chart Reviewed Documented by User: Virginia Keller MD 08/11/23 08:40 PMFSH Active Problems Active Problems: All Active Problems (Updated 08/11/23 @ 07:24 by Virginia Keller MD) Arthritis of both knees (Acute) S/P right rotator cuff repair (Acute) Rotator cuff tear, right (Acute) Internal derangement of right shoulder (Acute) Painful arc syndrome of right shoulder (Acute) Erectile dysfunction (Acute) Gross hematuria (Acute) Past Medical History Medical History Elevated cholesterol HTN (hypertension) Diverticulosis Erectile dysfunction Gross hematuria Diverticulitis Elevated PSA BPH (benign prostatic hyperplasia) Recurrent left inguinal hernia Left inguinal hernia Family History Family history of problems with anesthesia: No Surgical History Surgical History Hx of transurethral resection of prostate Hx of basal cell carcinoma excision Hx of rotator cuff surgery Hx of colonoscopy History of appendectomy History of hernia repair History of prostate biopsy History of Problems with Anesthesia: No Social History Social History Alcohol intake: never Patient Tobacco Use Status: Never used Tobacco Are you DNR?: No Advance Directives: No Advance Directives Information Provided: Yes Advance Directives on File: No Nutrition Risks: No Nutritional Risk Current occupational status: retired Current occupation: right handed. Meds Allergies Allergy/AdvReac Type Severity Reaction Status Date / Time HAYFEVER Allergy Mild ITCHY EYES Uncoded 03/29/21 11:21 Home Medications Medication Instructions Recorded Confirmed Last Taken Type amlodipine 5 mg-benazepril 10 mg 1 cap PO DAILY 08/26/20 08/09/23 08/11/23 History capsule candesartan 32 1 tab PO DAILY 08/26/20 08/09/23 08/11/23 History mg-hydrochlorothiazide 12.5 mg tablet finasteride 5 mg tablet 5 mg PO DAILY 08/26/20 08/09/23 Unknown History simvastatin 40 mg tablet 40 mg PO BEDTIME 08/26/20 08/09/23 Unknown History Vitamin C 08/09/23 Unknown History multivitamin 1 tab PO DAILY 08/09/23 08/09/23 Unknown History Exam Height,Weight and Vital Signs: Height 6 ft 1 in Weight 107.955 kg Vital Signs Temp Pulse Resp BP Pulse Ox O2 Del Method 08/11/23 08:29 98.0 F 69 18 106/69 94 Room Air 08/11/23 08:13 98.0 F 79 16 90/40 L 94 Room Air 08/11/23 06:33 97.3 F 100 20 118/64 96 Room Air Airway Mallampati Class: III TM Dist: >3cm Neck ROM: Full Loose/Missing/Broken Teeth: No (Denies broken, loose, missing teeth) Heart: RRR Lungs: CTAB Assessment and Plan Assessment Anesthesia Assessment: Anesthesia Plan Discussed Final Anesthetic Review Family History of Problems with Anesthesia: No History of Problems with Anesthesia: No NPO: Yes ASA Class: II Final Preanesthetic Review: No Changes in Pt Med Stat, Meds/Allgs Chart Reviewed, Consent Obtained/Reviewed and Anes Risks/Benef Reviewed Patient Risk: Low Procedure Risk: Low Assessment/Block/Sedation in SS: Assess/Block/Sedation-SS Anesthetic Plan Anesthetic Plan: MAC: Disposition: Standard PACU
[2023-08-11 06:33] VITALS: BP 118/64; PULSE 100; RESP 20; TEMP 36.3; O2SAT 96; BMI 29.4
[2023-08-11] MEDS: Lactated Ringers 1,000 ML 100 ML IVCONT (06:58)
--- NOTE | 2023-08-11 07:30 | MHC.SHP ---
Pre-Procedural Eval Section A Date of Service: 08/11/23 Section B Chief Complaint: hx of colonic polyps,screening Relevant Family History (Specify if Yes): No Relevant Social History: None Present Medications: see Short Stay Collaborative assessment Medical History: No relevant PMH Allergies: Allergies Allergy/AdvReac Type Severity Reaction Status Date / Time HAYFEVER Allergy Mild ITCHY EYES Uncoded 03/29/21 11:21 Review of Systems Sugical H&P ROS: Negative: Constitution, Cardiovascular, Respiratory, Neurological, Psychiatric, Hem-Onc, Allergic/Immunologic, Gastrointestinal, Genitourinary, Musculoskeletal, Integumentary, Endocrine and Eyes/Ears/Nose/Throat Exam Surgical H&P Exam: Normal: HEENT, Normal: Heart, Normal: Lungs, Normal: Extremities, Normal: Abdomen, Normal: Skin and Normal: Neurological Plan Diagnosis/Plan: Unchanged I have reviewed the history and physical and performed a pertinent physical examination on my patient. No changes have occurred unless specified. Time Spent With Patient Time: Total time managing care of this patient today ____ minutes.
[2023-08-11 08:13] VITALS: BP 90/40; PULSE 79; RESP 16; TEMP 36.7; O2SAT 94
--- NOTE | 2023-08-11 08:26 | OP_ITS ---
DATE OF SERVICE: 08/11/2023 SURGEON: Jt Bass MD INDICATIONS: Colon cancer screening and prior history of adenomatous colon polyps. PREOPERATIVE DIAGNOSIS: POSTOPERATIVE DIAGNOSIS: PROCEDURE PERFORMED: Colonoscopy to the terminal ileum. ESTIMATED BLOOD LOSS: COMPLICATIONS: ANESTHESIA: Monitored anesthesia care. ASSISTANTS: SPECIMENS: DESCRIPTION OF PROCEDURE: A history and physical were performed. The risks and benefits of the procedure were explained to the patient. Informed consent was obtained. The patient was placed in the left lateral decubitus position. A digital rectal exam was performed and was found to be normal. The Olympus pediatric video colonoscope was introduced into the rectum and advanced to the cecum. The cecum was identified by transillumination, palpation, and identification of ileocecal valve. Examination was performed and the scope was removed. He tolerated the procedure well and was turned to the recovery in stable condition. FINDINGS: The terminal ileum was examined and appeared normal. The visualized colonic mucosa was within normal limits without evidence of masses or ulcers. The quality of prep was good. No polyps were identified. There was extensive sigmoid diverticulosis with moderate scattered diverticulosis throughout the remainder of the colon. Retroflexed examination showed some small internal hemorrhoids. IMPRESSION: Normal screening colonoscopy. RECOMMENDATION: 1. Followup as needed. 2. Repeat colonoscopy is optional based on age. 10-year recommendations apply for average risk individuals. MD KIRSTIN Baltazar/NIKKIL / [phone]
[2023-08-11 08:29] VITALS: BP 106/69; PULSE 69; RESP 18; TEMP 36.7; O2SAT 94
== END 2023-08-11 08:50 | disposition home or self-care (01) ==
PROVIDERS: PCP Internal Medicine; Visit Provider Internal Medicine Gastroenterology
PROC: 0DJD8ZZ Inspection of Lower Intestinal Tract, Via Natural or Artificial Opening Endoscopic (ICD-10-PCS; CPT 45378; principal; 2023-08-11 07:30)
DX: Z12.11 Encounter for screening for malignant neoplasm of colon (principal); Z86.010 Personal history of colon polyps; K57.30 Diverticulosis of large intestine without perforation or abscess without bleeding; K64.8 Other hemorrhoids; I10 Essential (primary) hypertension; E78.5 Hyperlipidemia, unspecified; N40.0 Benign prostatic hyperplasia without lower urinary tract symptoms; Z85.828 Personal history of other malignant neoplasm of skin; Z79.899 Other long term (current) drug therapy
CPT/HCPCS: G0105; J2704

== ENCOUNTER 2023-12-30 06:30 | Outpatient (REF) | payer MEDICARE, BC, SELFPAY ==
[2023-12-30 11:08] LABS: MANUAL DIFF FLAG NO
[2023-12-30 11:11] LABS: Basophils Absolute Auto 0.1 X10*3/uL (0.0-0.2); Basophils Percent Auto 0.8 % (0-2); Eosinophils Absolute Auto 0.2 X10*3/uL (0.0-0.4); Eosinophils Percent Auto 3.5 % (0-4); Hematocrit 42.9 % (42.0-52.0); Hemoglobin 14.8 g/dl (14.0-18.0); Imm Gran Abs Auto 0.02 X10*3/uL (0.00-0.03); Imm Gran Pct Auto 0.3 % (0.0-0.4); Lymphocytes Absolute Auto 1.5 X10*3/uL (1.2-4.9); Lymphocytes Percent Auto 22.6 % (20-40); Mean Corpuscular HGB Conc 34.5 g/dl (31.0-36.0); Mean Corpuscular Hemoglobin 32.4 pg (27.0-33.0); Mean Corpuscular Volume 93.9 fL (80.0-98.0); Monocytes Absolute Auto 0.5 X10*3/uL (0.1-1.2); Neutrophils Absolute Auto 4.3 x10*3/uL (2.0-8.3); Neutrophils Percent Auto 64.8 % (45-73); Platelet Count 246 X10*3/uL (160-400); Red Blood Count 4.57 X10*6/uL (4.60-5.80); Red Cell Distribution Width 12.8 % (11.0-16.0); White Blood Count 6.6 X10*3/uL (4.8-10.8)
[2023-12-30 11:34] LABS: Alanine Aminotransferase 27 U/L (0-40); Albumin Level 4.3 g/dL (3.5-5.0); Alkaline Phosphatase 73 U/L (39-117); Anion Gap 15 (12-20); Aspartate Amino Transferase 27 U/L (5-37); Bilirubin Total 0.7 mg/dL (0.0-1.0); Blood Urea Nitrogen 18 mg/dL (9-16); Calcium 9.5 mg/dL (8.4-10.2); Carbon Dioxide 25 mmol/L (22-29); Chloride 106 mmol/L (96-108); Cholesterol 139 mg/dL (<200); Estimated Glomerular Filt Rate > 60; Glucose Fasting 109 mg/dL (60-99); HDL Cholesterol 41 mg/dL (>40); LDL Cholesterol Calculated 80 mg/dL (<100); Potassium 4.5 mmol/L (3.3-5.1); Sodium 141 mmol/L (135-145); Total Protein 7.5 g/dL (6.5-8.0); Triglycerides 94 mg/dL (<150)
== END 2023-12-30 06:31 | disposition home or self-care (01) ==
LOC: HO.HMGCLDS 06:30
PROVIDERS: PCP Internal Medicine; Visit Provider Internal Medicine
DX: I10 Essential (primary) hypertension (principal); E78.00 Pure hypercholesterolemia, unspecified
CPT/HCPCS: 36415; 80053; 80061; 85025

== ENCOUNTER 2024-05-13 06:03 | Outpatient (REF) | payer MEDICARE, BC, SELFPAY ==
[2024-05-13 10:29] LABS: MANUAL DIFF FLAG NO
[2024-05-13 10:36] LABS: Basophils Absolute Auto 0.1 X10*3/uL (0.0-0.2); Basophils Percent Auto 0.9 % (0-2); Eosinophils Absolute Auto 0.3 X10*3/uL (0.0-0.4); Eosinophils Percent Auto 4.3 % (0-4); Hematocrit 42.2 % (42.0-52.0); Hemoglobin 14.7 g/dl (14.0-18.0); Imm Gran Abs Auto 0.03 X10*3/uL (0.00-0.03); Imm Gran Pct Auto 0.5 % (0.0-0.4); Lymphocytes Absolute Auto 1.9 X10*3/uL (1.2-4.9); Mean Corpuscular HGB Conc 34.8 g/dl (31.0-36.0); Mean Corpuscular Hemoglobin 32.5 pg (27.0-33.0); Mean Corpuscular Volume 93.4 fL (80.0-98.0); Mean Platelet Volume 10.8 fL (9.4-12.4); Monocytes Absolute Auto 0.6 X10*3/uL (0.1-1.2); Monocytes Percent Auto 8.5 % (2-11); Neutrophils Absolute Auto 3.7 x10*3/uL (2.0-8.3); Neutrophils Percent Auto 56.8 % (45-73); Platelet Count 211 X10*3/uL (160-400); Red Blood Count 4.52 X10*6/uL (4.60-5.80); Red Cell Distribution Width 12.8 % (11.0-16.0); White Blood Count 6.6 X10*3/uL (4.8-10.8)
[2024-05-13 11:04] LABS: Alanine Aminotransferase 24 U/L (0-40); Albumin Level 4.2 g/dL (3.5-5.0); Alkaline Phosphatase 62 U/L (39-117); Anion Gap 13 (12-20); Aspartate Amino Transferase 22 U/L (5-37); Bilirubin Total 0.8 mg/dL (0.0-1.0); Blood Urea Nitrogen 22 mg/dL (9-16); Calcium 9.4 mg/dL (8.4-10.2); Carbon Dioxide 26 mmol/L (22-29); Chloride 108 mmol/L (96-108); Cholesterol 166 mg/dL (<200); Estimated Glomerular Filt Rate > 60; Glucose Fasting 102 mg/dL (60-99); HDL Cholesterol 45 mg/dL (>40); LDL Cholesterol Calculated 79 mg/dL (<100); Sodium 143 mmol/L (135-145); Thyroid Stimulating Hormone 2.49 uIU/mL (0.32-4.0); Triglycerides 214 mg/dL (<150)
[2024-05-13 11:19] LABS: PSA,Total (Free>4and<10) 3.19 ng/mL (0.00-4.00)
== END 2024-05-13 06:04 | disposition home or self-care (01) ==
LOC: HO.HMGCLDS 06:03
PROVIDERS: PCP Internal Medicine; Visit Provider Internal Medicine
DX: I10 Essential (primary) hypertension (principal); E78.00 Pure hypercholesterolemia, unspecified; N40.0 Benign prostatic hyperplasia without lower urinary tract symptoms; E66.09 Other obesity due to excess calories; Z12.5 Encounter for screening for malignant neoplasm of prostate
CPT/HCPCS: 36415; 80053; 80061; 84153; 84443; 85025

== ENCOUNTER 2024-11-05 06:01 | Outpatient (REF) | payer MEDICARE, BC, SELFPAY ==
--- OUTSIDE RECORDS SUMMARY | 2024-11-05 06:03 | XMS_ITS | Patient Health Record ---
Author Organization [facility] Address [address] [place] [id number] Care Team Providers Care Online Facilitator Name Role Phone Devin (RETIRED) Killian PAUL Primary Care Provid er Unavailable Kali Grace Jt Unavailable Allergies No Known Allergies Reason For Referral No Information Medications Medication SIG (Take, Route, Frequency, Duration) Notes Start Date End Date Status MiraLax (colon prep) 17 GM/SCOOP mixed with Gatorade or Crystal Light Orally begin at 5:00 p.m. the day before the procedure for 1 day 06/21/2023 Active Finasteride 5 MG TAKE 1 TABLET BY ABBEY TH EVERY DAY Oral for 90 Active Simvastatin 40 MG Oral for 90 Active amLODIPine Besy-Benazepril HCl 5-10 MG Oral for 90 Active Multi Vitamin Mens A ctive Candesartan Cilexetil-HCTZ 32-12.5 MG Oral for 90 Active Vitamin C Gummie 120 MG as directed Orally Active Immunizations Vaccine Route Administration Date Status Comme nts Influenza Unknown 05/09/2023 Administered Social History Tobacco Use: Social History Observation Description Date Details (start date - stop date) Never Smoker NA - NA Tobacco Use/Smoking Question Answer Notes Patient is a nonsmoker Alcohol Screen Question Answer Notes Did you have a drink contain ing alcohol in the past year? Yes How often did you have a dri nk containing alcohol in the past year? 2 to 4 times a month (2 points) How many drinks did you have on a typical day when you were drinking in the past year? 3 or 4 drinks (1 point) How often did you have 6 or more drinks on one occasion in the past year? Never (0 point) Points 3 Interpretation Negative Problems Problem Type SNOMED Code ICD Code Onset Dates Problem Status W/U Status Risk Notes Problem 666268341 Colon cancer screening (Z12.11) Active confirmed Problem 138391853 Personal history of colonic polyps (Z86.010) Active confirmed Problem History of polyp of colon (759308386) History of colon polyps (Z86.010) Active confirmed Plan Of Treatment Future Test Test Name Order Date COLONOSCOPY 06/21/2023 Insurance Providers Payer Name Payer Address Payer Phone Subscriber Number Group Number Insured Name Patient Relationship to Insured Coverage Start Date Coverage End Date MEDICARE OF [place] [address] [place] [address] [phone] [id number] JARVIS ROLLINS Self - patient is the insured [employer] [address] [place] [address] [id number] JARVIS ROLLINS Self - patient is the insured Medical (General) History Medical History History ICD Code Hypertension Hyperlipidemia Diverticulosis Colonoscopy 02/05, tubular adenoma, five- year followup BPH/elevated PSA Surgical History Surgery Date(Month/Year) Rotator cuff surgery x2 Appendectomy Basal cell carcinoma TURP 07/31
--- OUTSIDE RECORDS SUMMARY | 2024-11-05 06:03 | XMS_ITS ---
Author Organization [facility] Address [address] [place] [id number] Care Team Providers Care Locomotive Switch Operator Name Role Phone Devin (RETIRED) Killian PAUL Primary Care Provid er Unavailable Kali GraceDillonJt Unavailable Allergies No Known Allergies REASON FOR VISIT Patient presents today for a COLON SCREENING Medications Medication SIG (Take, Route, Frequency, Duration) Notes Start Date End Date Status Finasteride 5 MG TAKE 1 TABLET BY ABBEY TH EVERY DAY Oral for 90 Active amLODIPine Besy-Benazepril HCl 5-10 MG Oral for 90 Active Multi Vitamin Mens A ctive Candesartan Cilexetil-HCTZ 32-12.5 MG Oral for 90 Active Vitamin C Gummie 120 MG as directed Orally Active MiraLax (colon prep) 17 GM/SCOOP mixed with Gatorade or Crystal Light Orally begin at 5:00 p.m. the day before the procedure for 1 day 06/21/2023 Active Simvastatin 40 MG Oral for 90 Active Social History Tobacco Use: Social History Observation [...] Problem Status W/U Status Risk Notes Problem [id number] Colon cancer screening (Z12.11) Active confirmed Problem 005330592 Personal history of colonic polyps (Z86.010) Active confirmed Vital Signs Temperature 97.7 degrees Fahrenheit 06/21/20 23 Blood pressure systolic 000 mm Hg 06/21/20 23 Blood pressure diastolic 00 mm Hg 023 Height 6 ft 1 in in 06/21/2023 Weight 238 lb 2 oz lbs 06/21/2023 BMI 31.41 kg/m2 06/21/2023 Encounters Encounter Location Date Provider Diagnosis [facility] [address] [place] [address] 06/21/2023 Jt Bass Jr Colon cancer screening Z12.11 and Personal history of colonic polyps Z86.010 Assessments Encounter Date Diagnosis (ICD Code) Assessment Notes Treatment Notes Treatment Clinical Notes Section Notes 06/21/2023 Colon cancer screening (ICD-10 - Z12.11) Colonoscopy material was printed We discussed colonoscopy today. We discussed risks and benefits of the procedure today. He understands these and agrees to proceed. This will be scheduled at his convenience. 06/21/2023 Personal history of colonic polyps (ICD-10 - Z86.010) We discussed colonoscopy today. We discussed risks and benefits of the procedure today. He understands these and agrees to proceed. This will be scheduled at his convenience. Plan Of Treatment Medication Medication Name Sig Start Date Stop Date Notes MiraLax (colon prep) 17 GM/SCOOP mixed with Gatorade or Crystal Light Orally begin at 5:00 p.m. the day before the procedure for 1 day 06/21/2023 Treatment Notes Assessment Notes Colon cancer screening Colonoscopy mater ial was printed Future Test Test Name Order Date COLONOSCOPY 06/21/2023 Next Appt Details Follow Up: 1 Year, Reason: Progress Notes * TOBIN JARVIS RDOB:1949 (73 yo M)Acc No.[id number]:06/21/2023 Progress Notes Patient:?JARVIS RUDD Provider:?Jt Bass MD :1950???Age:73 Y???Sex:Male Darwin e:06/21/2023 Address:[address] [place] [address] , [facility] Pcp:Killian Beltran, DO Subjective: * Chief Complaints: * ???1. Patient presents today for a COLON SCREENING. * HPI: ???New symptom(s):? Jarvis is a pleasant 73-year-old man seen today for his preoperative colonoscopy visit. He has a personal history of colon polyps and last underwent colonoscopy in January of 2018 with removal of an 8 mm tubular adenoma from the left colon. Diverticulosis was noted as well. We reviewed this today. He has no complaints of rectal bleeding. He has no change in his bowel habits. Weight and appetite have been stable. * ROS:?General/Constitutional:?Change in appetite?denies.?Fatigue?denies.?ENT:?Patient denies?difficulty swallowing.?Respiratory:?Patient denies?shortness of breath.?Cardiovascular:?Patient denies?chest pain.?Gastrointestinal:?Comments?See HPI for details.?Genitourinary:?Difficulty urinating?denies.?Incontinence?denies.?Musculoskeletal:?Patient denies?muscle aches.?Skin:?Patient denies?pruritis.?Neurologic:?Patient denies?low back pain.?Psychiatric:?Patient denies?mental or physical abuse.? * Medical History:?Hypertensio n, Hyperlipidemia, Diverticulosis, Colonoscopy 02/05, tubular adenoma, five-year followup, BPH/elevated PSA. * Surgical History:?Rotator cu ff surgery x2 , Appendectomy , Basal cell carcinoma , TURP 07/31. * Hospitalization/Major Diagno stic Procedure:?Denies Past Hospitalization. * Family History:?Father: dece ased.?Mother: .? No family history of colon cancer or liver cancer. * Social History:?Tobacco Use:?Tobacco Use/Smoking?Patient is a?nonsmoker.?Drugs/Alcohol:?Alcohol Screen?Did you have a drink containing alcohol in the past year??Yes,?How often did you have a drink containing alcohol in the past year??2 to 4 times a month (2 points),?How many drinks did you have on a typical day when you were drinking in the past year??3 or 4 drinks (1 point),?How often did you have 6 or more drinks on one occasion in the past year??Never (0 point),?Points?3,?Interpretation?Negative.?Miscellaneous:?Marital status: single. Occupation: retired. * Medications:?Taking Multi Vi tamin Mens , Taking Vitamin C Gummie 120 MG Tablet Chewable as directed Orally , Taking Candesartan Cilexetil-HCTZ 32-12.5 MG Tablet Oral , Taking Simvastatin 40 MG Tablet Oral , Taking Finasteride 5 MG Tablet TAKE 1 TABLET BY MOUTH EVERY DAY Oral , Taking amLODIPine Besy-Benazepril HCl 5-10 MG Capsule Oral , Medication List reviewed and reconciled with the patient * Allergies:?N.K.D.A. Objective: * Vitals:?Wt: 238 lb 2 oz, Ht: 6 ft 1 in, BMI:31.41 Index, BP: 000/00 mm Hg, Temp: 97.7. * Examination: ???General Examination: ?GENERAL APPEARANCE:?in no acute distress.?HEAD:?normocephalic.?EYES:?sclera non-icteric.?ORAL CAVITY:?mucosa moist.?NECK/THYROID:?no lymphadenopathy.?SKIN:?anicteric.?HEART:?S1, S2 normal, no murmurs.?LUNGS:?clear to auscultation bilaterally.?CHEST:?normal shape and expansion.?ABDOMEN:?soft, nontender, nondistended, bowel sounds present, no organomegaly .?EXTREMITIES:?no clubbing, cyanosis, or edema.?PSYCH:?cognitive function intact.? Assessment: * Assessment: 1.?Colon cancer screening - Z12.11 (Primary)?2.?Personal history of colonic polyps - Z86.010? We discussed colonoscopy tod ay. We discussed risks and benefits of the procedure today. He understands these and agrees to proceed. This will be scheduled at his convenience. Plan: * Treatment: Notes: Colonoscopy material was printed.??2.?Personal history of colonic polyps?Procedure: COLONOSCOPY (Ordered for 06/21/2023)* sched for 08/11/23 at 8:20 a mmacmiralax * Preventive Medicine:? ??Counseling:?Care goal follow-up plan:?Above Normal BMI Follow-up?Giving encouragement to exercise,?BMI management provided?Yes.? * Follow Up:?1 Year * * Sign off status: Completed true * Provider:?Jt Bass MD Date:?1 08/21/2022 Generated for Lindsay banks/Vel/eTransmitting on:?11/05/2024 06:03 AM EDT History and Physical Notes * HPI (History of Present Illness) Category Sub-Category Detail Notes Category Not es New symptom(s) Jarvis is a ple asant 73-year-old man seen today for his preoperative colonoscopy visit. He has a personal history of colon polyps and last underwent colonoscopy in January of 2018 with removal of an 8 mm tubular adenoma from the left colon. Diverticulosis was noted as well. We reviewed this today. He has no complaints of rectal bleeding. He has no change in his bowel habits. Weight and appetite have been stable. Examination Category Sub-Category Detail Notes Category Not es General Examination GENERAL APPEARANCE: in no acute di stress HEAD: normocephalic EYES: sclera non-icteric NECK/THYROID: no lymphadenopathy HEART: S1, S2 normal, no mu rmurs CHEST: normal shape and exp ansion LUNGS: clear to auscultatio n bilaterally ABDOMEN: soft, nontender, non distended, bowel sounds present, no organomegaly SKIN: anicteric EXTREMITIES: no clubbing, cyanosi s, or edema PSYCH: cognitive function i ntact ORAL CAVITY: mucosa moist
[2024-11-05 10:04] LABS: MANUAL DIFF FLAG NO
[2024-11-05 10:29] LABS: Basophils Absolute Auto 0.1 X10*3/uL (0.0-0.2); Basophils Percent Auto 0.9 % (0-2); Eosinophils Absolute Auto 0.3 X10*3/uL (0.0-0.4); Eosinophils Percent Auto 3.5 % (0-4); Hematocrit 44.4 % (42.0-52.0); Hemoglobin 16.1 g/dl (14.0-18.0); Imm Gran Abs Auto 0.02 X10*3/uL (0.00-0.03); Imm Gran Pct Auto 0.3 % (0.0-0.4); Lymphocytes Absolute Auto 1.8 X10*3/uL (1.2-4.9); Lymphocytes Percent Auto 23.1 % (20-40); Mean Corpuscular HGB Conc 36.3 g/dl (31.0-36.0); Mean Corpuscular Hemoglobin 32.9 pg (27.0-33.0); Mean Corpuscular Volume 90.8 fL (80.0-98.0); Mean Platelet Volume 10.3 fL (9.4-12.4); Monocytes Absolute Auto 0.7 X10*3/uL (0.1-1.2); Monocytes Percent Auto 8.8 % (2-11); Neutrophils Absolute Auto 4.9 x10*3/uL (2.0-8.3); Neutrophils Percent Auto 63.4 % (45-73); Platelet Count 246 X10*3/uL (160-400); Red Blood Count 4.89 X10*6/uL (4.60-5.80); Red Cell Distribution Width 12.5 % (11.0-16.0); White Blood Count 7.7 X10*3/uL (4.8-10.8)
[2024-11-05 10:31] LABS: Estimated Average Glucose 103 mg/dL; Hemoglobin A1C 139.6924 umol/L; Hemoglobin A1c % 5.2 % (<6.0); Total Hemoglobin (HGBA1C) 4179.1592 umol/L
[2024-11-05 10:56] LABS: PSA,Total (Free>4and<10) 3.51 ng/mL (0.00-4.00)
[2024-11-05 10:59] LABS: Alanine Aminotransferase 56 U/L (0-40); Albumin Level 4.3 g/dL (3.5-5.0); Alkaline Phosphatase 65 U/L (39-117); Anion Gap 12 (12-20); Aspartate Amino Transferase 34 U/L (5-37); Bilirubin Direct 0.2 mg/dL (0.0-0.5); Bilirubin Total 0.9 mg/dL (0.0-1.0); Blood Urea Nitrogen 21 mg/dL (9-16); C Reactive Protein 0.14 mg/dL (< or = 0.50); Calcium 8.9 mg/dL (8.4-10.2); Carbon Dioxide 26 mmol/L (22-29); Chloride 108 mmol/L (96-108); Cholesterol 139 mg/dL (<200); Estimated Glomerular Filt Rate > 60; Glucose Fasting 90 mg/dL (60-99); HDL Cholesterol 39 mg/dL (>40); LDL Cholesterol Calculated 55 mg/dL (<100); Magnesium 2.2 mg/dL (1.6-2.6); Potassium 3.8 mmol/L (3.3-5.1); Sodium 142 mmol/L (135-145); TSH reflex Free T4 1.75 uIU/mL (0.32-4.0); Total Protein 7.5 g/dL (6.5-8.0); Triglycerides 225 mg/dL (<150); Vitamin D 25-OH Total 90.7 ng/mL (>30)
[2024-11-05 11:00] LABS: Erythrocyte Sedimentation Rate 6 MM/HR (0-15)
[2024-11-05 11:08] LABS: Folate 17.2 ng/mL (> or = 4.0); Vitamin B12 589 pg/mL (200-900)
[2024-11-10 11:48] LABS: Vitamin B1 75 nmol/L (8-30)
== END 2024-11-05 06:02 | disposition home or self-care (01) ==
LOC: HO.HMGCLDS 06:01
PROVIDERS: PCP Internal Medicine; Visit Provider Physician Assistant Medical
DX: Z00.00 Encounter for general adult medical examination without abnormal findings (principal); Z12.5 Encounter for screening for malignant neoplasm of prostate; Z13.6 Encounter for screening for cardiovascular disorders; Z13.1 Encounter for screening for diabetes mellitus
CPT/HCPCS: 36415; 80053; 80061; 80076; 82248; 82306; 82607; 82746; 83036; 83735; 84153; 84425; 84443; 85025; 85652; 86140

== ENCOUNTER 2024-11-20 09:58 | Outpatient (AMB) | payer MEDICARE, BC, SELFPAY ==
--- NOTE | 2024-11-20 10:00 | MHC.PC.OV ---
Vital Signs 11/20/24 10:09 Height 6 ft Weight 241 lb BMI 32.7 BP 93/64 Blood Pressure Location Lt brachial Pulse 98 Pulse Source Monitor Temp 97.5 F Pulse Oximetry (%) 97 Intake Visit Reasons: 6 month follow up Intake Note: no issues Allergies HAYFEVER Allergy (Mild, Uncoded 11/20/24 10:39) ITCHY EYES Medication List - Last Reconciled 11/20/24 by Marlen Lazaro PA-C amlodipine-benazepril 5-10 mg 1 cap PO DAILY candesartan-hydrochlorothiazid 32-12.5 mg 1 tab PO DAILY cholecalciferol (vitamin D3) (Vitamin D3) 25 mcg PO DAILY finasteride 5 mg PO DAILY multivitamin 1 tab PO DAILY semaglutide (weight loss) 1 mg subcut QWEEK simvastatin 40 mg PO BEDTIME trazodone 25 mg (1/2 x 50 mg) PO BEDTIME PRN [Vitamin C ] PFSH Medical History (Updated 11/20/24 @ 10:54 by Marlen Lazaro PA-C) Class 1 obesity with body mass index (BMI) of 32.0 to 32.9 in adult Excessive intake of thiamine Elevated ALT measurement Iron overload Elevated ferritin Seasonal allergies Prostatitis Bladder outlet obstruction Internal hemorrhoids Migraine headache Elevated cholesterol HTN (hypertension) Diverticulosis Erectile dysfunction Gross hematuria Diverticulitis Elevated PSA BPH (benign prostatic hyperplasia) Recurrent left inguinal hernia Left inguinal hernia Surgical History (Updated 11/20/24 @ 10:24 by Marlen Lazaro PA-C) Hx of transurethral resection of prostate Hx of basal cell carcinoma excision Hx of rotator cuff surgery Hx of colonoscopy (~08/11/23) History of appendectomy History of hernia repair History of prostate biopsy Social History Alcohol intake: never Patient Tobacco Use Status: Never used Tobacco Current occupational status: retired Current occupation: right handed. Questionnaire PHQ-9 Over the last 2 weeks, how often have you been bothered by any of the following problems? 1. Little interest or pleasure in doing things: not at all 2. Feeling down, depressed, or hopeless: not at all 3. Trouble falling or staying asleep, or sleeping too much: nearly every day (reports feels like he needs something for sleep does not feel it is related to depression ) 4. Feeling tired or having little energy: several days (although pt trys to exercise every day or walk ) 5. Poor appetite or overeating: not at all 6. Feeling bad about yourself - or that you are a failure or have let yourself or your family down: not at all 7. Trouble concentrating on things, such as reading the newspaper or watching television: not at all 8. Moving or speaking so slowly that other people could have noticed. Or the opposite - being so fidgety or restless that you have been moving around a lot more than usual: not at all 9. Thoughts that you would be better off or of hurting yourself in some way: not at all Total score: 4 Depression Screening Interpretation: Negative Depression Screening Done: Yes 87556 - PHQ-9 Billing: Yes Source: Developed by Drs. Killian Hood, Lakia West, Sergey Ledezma and colleagues, with an educational yaa from [employer]. Thrive Questionnaire Date Thrive assessed: 11/20/24 I am a: Patient What is your living situation today?: I have a steady place to live Within the past 12 months, did the food you bought not last and you didn't have the money to get more?: Never true Within the past 12 months, did you worry whether your food would run out before you got money to buy more?: Never true Do you have trouble paying for medicines?: No Do you have trouble getting transportation to medical appointments?: No Do you have trouble paying your heating and electricity bill?: No Do you have trouble taking care of your child, family member or friend?: No Do you have trouble with day-to-day activities such as bathing, preparing meals, shopping, managing finances, etc.?: No Are you currently unemployed and looking for a job?: No Are you interested in more education?: No THRIVE Score: 0 AUDIT C Alcohol Use Questionnaire (AUDIT-C) 1. How often do you have a drink containing alcohol?: 2-4 times a month 3. How often do you have six or more drinks on one occasion?: Less than monthly Total Score: 3 VEENA-7 AMB Questionnaire VEENA-7 Date VEENA - 7 assessed: 11/20/24 Feeling nervous, anxious, or on edge: 0 = Not at all Not being able to stop or control worryin = Not at all Worrying too much about different things: 0 = Not at all Trouble relaxin = Not at all Being so restless that it is hard to sit still: 0 = Not at all Becoming easily annoyed or irritable: 0 = Not at all Feeling afraid as if something awful might happen: 0 = Not at all Total VEENA-7 score (0-4 normal; 5-9 mild; 10-14 moderate; 15-21 severe): 0 Source: Developed by Drs. Killian Hood, Lakia West, Sergey Ledezma and colleagues, with an educational yaa from [employer]. Physical exam (Primary Care) Vital Signs: Last Vital Signs Temp 97.5 F 11/20/24 10:09 Pulse 98 11/20/24 10:09 BP 93/64 11/20/24 10:09 Pulse Ox 97 11/20/24 10:09 Care Plan Goal for BP management: <130/80 at Goal BMI result Body Mass Index 32.7 BMI Assessment/Plan discussion: High BMI High, discussed plan: lifestyle, weight reduction, dietary, physical activity and alcohol moderation Tobacco/Smoking Status: Tobacco use Status Patient Tobacco Use Status Never used Tobacco 11/20/24 10:10 PHQ-9: PHQ-9 Score PHQ-9: Total score 4 11/20/24 10:18 Depression Screening Interpretation: Negative Coding Level of Care Code New Pt Level 4 (43791) Complex EM visit Add On G2211 Diagnoses Follow-up exam, 3-6 months since previous exam Z09 BPH (benign prostatic hyperplasia) N40.0 Elevated PSA R97.20 HTN (hypertension) I10 Elevated cholesterol E78.00 Elevated ALT measurement R74.01 Diverticulosis K57.90 Iron overload E83.19 Excessive intake of thiamine R63.8 Class 1 obesity with body mass index (BMI) of 32.0 to 32.9 in adult E66.811; Z68.32 Additional Codes PHQ-9 - 96026 - PHQ-9 Billing: Yes ([id number]) Assessment & Plan Assessment & Plan (1) Follow-up exam, 3-6 months since previous exam: Code(s): Z09 - Encounter for follow-up examination after completed treatment for conditions other than malignant neoplasm (2) BPH (benign prostatic hyperplasia): Code(s): N40.0 - Benign prostatic hyperplasia without lower urinary tract symptoms Category: Medical Plan: Maintain finasteride to manage BPH symptoms. Follow-up with urology as appropriate. (3) Elevated PSA: Code(s): R97.20 - Elevated prostate specific antigen [PSA] Category: Medical Plan: Maintain finasteride to manage BPH symptoms. Follow-up with urology as appropriate. (4) HTN (hypertension): Code(s): I10 - Essential (primary) hypertension Category: Medical Plan: The patient will continue amlodipine/benzenopril 5-10 mg daily and Candesartan-hydrochlosothiazid 32-12.5 mg daily to manage blood pressure. Regular monitoring suggested. (5) Elevated cholesterol: Code(s): E78.00 - Pure hypercholesterolemia, unspecified Category: Medical Plan: Continue simvastatin, focusing on managing elevated triglycerides with diet adjustments. (6) Elevated ALT measurement: Code(s): R74.01 - Elevation of levels of liver transaminase levels Category: Medical Plan: Await future liver function tests, no current intervention planned due to absence of symptoms. (7) Diverticulosis: Code(s): K57.90 - Diverticulosis of intestine, part unspecified, without perforation or abscess without bleeding Category: Medical Plan: Management with diet remains the focus. No diverticulitis episodes currently. (8) Iron overload: Code(s): E83.19 - Other disorders of iron metabolism Category: Medical Plan: Periodic ferritin monitoring suggested, with dietary moderation in iron consumption. (9) Excessive intake of thiamine: Code(s): R63.8 - Other symptoms and signs concerning food and fluid intake Category: Medical Plan: Patient discontinued multivitamin that had B1 in it due to elevated B1 levels. Will reassess in 6 months. Condition is stable will continue to monitor. (10) Class 1 obesity with body mass index (BMI) of 32.0 to 32.9 in adult: Code(s): E66.811 - Obesity, class 1; Z68.32 - Body mass index [BMI] 32.0-32.9, adult Category: Medical Plan: Patient to continue improving his diet and exercise regimen. Condition is chronic and stable continue to monitor. Plan Plan Patient was informed and verbally consented to the use of an ambient scribe for clinic note documentation during this visit. 1. Elevation Of Liver Enzymes Await future liver function tests, no current intervention planned due to absence of symptoms. 2. Diverticulosis Management with diet remains the focus. No diverticulitis episodes currently. 3. Hyperlipidemia Continue simvastatin, focusing on managing elevated triglycerides with diet adjustments. 4. Iron Overload Periodic ferritin monitoring suggested, with dietary moderation in iron consumption. 5. Bursitis Advised moderation with massage intensity, no additional treatment required currently. 6. Benign Prostatic Hyperplasia Maintain finasteride to manage BPH symptoms. Follow-up with urology as appropriate. 7. Essential Hypertension The patient will continue amlodipine/benzenopril 5-10 mg daily and Candesartan-hydrochlosothiazid 32-12.5 mg daily to manage blood pressure. Regular monitoring suggested. Discussion Notes I discussed with the patient his history of elevated blood pressure and the importance of maintaining his current regimen of amlodipine/benzenopril 5-10 mg daily and Candesartan-hydrochlosothiazid 32-12.5 mg daily. We reviewed his lipid panel results, noting the elevated triglycerides, and continue current therapy with simvastatin, alongside dietary recommendations. We addressed the patient's PSA results, emphasizing the benign nature confirmed by prior biopsies, and the ongoing use of finasteride. For his iron overload, reinforcement of periodic lab evaluation was made. His elevated ALT will be observed with future labs to be ordered, as clinically appropriate, given the absence of symptoms. For his history of bursitis, instructions were given concerning massage techniques to mitigate strain on bursae. Lastly, we confirmed follow-up scheduling in six months to reevaluate and adjust his care plan based on his ongoing clinical status. Medications: New trazodone 25 mg (1/2 x 50 mg) PO BEDTIME PRN 90 tabs 1RF sleep Patient Instructions: Patient Instructions - Continue taking your blood pressure and lipid medications as prescribed. - Maintain a diet low in saturated fats and high in fiber. - Monitor and report any changes in urinary patterns or symptoms to urology promptly. - Minimize iron-rich foods to prevent overload and remain within recommended ranges. - Refrain from excessive massaging pressure on hips to avoid bursitis flare. - Follow up in six months for routine evaluation and repeat lab work. Scribe Plan - Not visible on output: History of Present Illness The patient is a 74-year-old male presenting for a follow-up visit to manage ongoing health issues. He has a history of essential hypertension and hyperlipidemia, both under medical management. He reports diverticulosis with intermittent diverticulitis episodes, managed by diet and vigilance. His prosthetic status is notable for benign prostatic hyperplasia with elevated PSA, routinely evaluated by a urologist. The patient acknowledges historical appendectomy and hernia repairs. His lab work indicated elevated liver enzyme ALT, which is monitored but presently asymptomatic. A colonoscopy in July 2023 showed polyps, with no present urgency for further screening unless symptoms develop. Elevated triglycerides were recorded, yet overall cholesterol levels remain well-managed. His activity regimen includes daily workouts and walks, not reporting any cardiopulmonary concerns. He has experienced occasional nocturnal leg discomfort, using muscular massaging for symptomatic relief. His medication regime includes adjustments for vitamin supplementation due to previously high serum B1 levels. Social History - Exercise: Regular physical activity including daily gym visits and walking five miles on a golf course. - Nutritional Intake: Supplements dietary intake with fruits and vegetable supplements due to low natural consumption. - Functional Status: Active lifestyle; no issues reported. - Occupation: Retired. Review of Systems - Neurological: Denies headache since initiation of therapy. - Respiratory: Denies shortness of breath. - Cardiovascular: Denies chest pain. - Gastrointestinal: Denies abdominal pain; normal bowel movements, denies hematochezia or melena. - Genitourinary: Hematuria noted; denies dysuria. - Musculoskeletal: Denies joint pain, reports nocturnal leg discomfort. - Dermatologic: Denies lesions. - Hematologic: Denies abnormal bleeding. Physical Exam Appearance: Alert. Oriented X3. No acute distress. Head: Normal external exam. Normocephalic. Atraumatic. Eyes: Pupils are equal, round, and reactive to light. Extraocular movements intact. Conjunctiva and sclera normal. Eyelids normal. Ears: External auditory canal normal. Tympanic membranes normal. Throat: Pharynx normal. Uvula midline. Moist mucous membranes. Neck: Normal inspection. Neck supple. Full range of motion. No adenopathy. Thyroid Normal. No meningeal signs. No neck mass noted. Cardiovascular: Normal heart rate and rhythm. Heart sound normal. No murmurs noted. Pulses normal throughout. Respiratory: No respiratory distress. Painless inspiration. Breath sounds normal. No wheezes/rales/rhonchi noted. Chest nontender. No accessory muscle usage noted or decreased air movement noted. Abdomen: Soft and nontender. Bowel sounds normal in all 4 quadrants. No distention noted. No organomegaly noted. No visible injury noted. Back: No costovertebral angle tenderness. Full range of motion noted. Skin: Skin warm and dry. Normal skin color. Normal skin turgor. No rashes/lesions/lacerations noted. Extremities: No lower extremity edema. Extremities exhibit normal range of motion. Extremities nontender. No calf tenderness noted. Neuro: Oriented X 3. No motor deficit. No sensory deficit. Reflexes normal. Results - Labs: - CBC: Normal, no anemia. - Hemoglobin A1c: 5.2, within normal range. - ALT: 56, mildly elevated. - Lipid Panel: Triglycerides elevated at 225; acceptable total cholesterol and LDL. - Vitamin B1: Previously elevated.
[2024-11-20 10:09] VITALS: BP 93/64; PULSE 98; TEMP 36.4; O2SAT 97; BMI 32.7
--- OUTSIDE RECORDS SUMMARY | 2024-11-20 11:26 | XMS_ITS ---
Author Organization [facility] Address [address] [place] [id number] Care Team Providers Care Apparatus Operator Name Role Phone Devin (RETIRED) Killian PAUL Primary Care Provid er Unavailable Jt Bass Jr Unavailable REASON FOR VISIT screening,hx polyps Problems Problem Type SNOMED Code ICD Code Onset Dates Problem Status W/U Status Risk Notes Problem History of polyp of colon (763238628) History of colon polyps (Z86.010) Active confirmed Encounters Encounter Location Date Provider Diagnosis [facility] Outpatient [address] [place] [phone] 08/11/2023 Jt Bass Jr Encounter for screening colonoscopy for fat-pove-oyvh patient Z12.11 and History of colon polyps Z86.010 Assessments Encounter Date Diagnosis (ICD Code) Assessment Notes Treatment Notes Treatment Clinical Notes Section Notes 08/11/2023 Encounter for screening colonoscopy for mfo-nyea-uybl patient (ICD-10 - Z12.11) 08/11/2023 History of colon polyps (ICD-10 - Z86.010) Plan Of Treatment No Information Progress Notes * JARVIS RUDD RDOB:1949 (74 yo M)Acc No.[id number]:08/11/2023 COLON WITH MAC Patient:?JARVIS RUDD Provider:?Jt Bass MD :1950???Age:73 Y???Sex:Male Darwin e:08/11/2023 Address:[address] [place], [place] [id number] Pcp:Killian Beltran (RETIRE D), DO Subjective: * Chief Complaints: * ???1. Screening,hx polyps. * Medical History:? Objective: * Vitals:? Assessment: * Assessment: 1.?Encounter for screening c olonoscopy for dem-ygdn-lrjv patient - Z12.11 (Primary)???2.?History of colon polyps - Z86.010??? Plan: * Treatment: * Procedure Codes:?16964 DIAGN OSTIC COLONOSCOPY, G0105 COLOREC CANCR SCR; COLNSCPY HI RISK, 0529F INTRVL 3+YRS PTS CLNSCP DOCD, 0528F RCMND FLW-UP 10 YRS DOCD * * The named appointment provid er may or may not be the originator of this progress note, and it is not deemed complete until electronically signed by the appointment provider. Sign off status: Pending * Provider:?Jt Bass MD Date:?1 10/12/2022 Generated for Lindsay banks/Vel/eTransmitting on:?11/20/2024 11:25 AM EDT
--- OUTSIDE RECORDS SUMMARY | 2024-11-20 11:26 | XMS_ITS ---
Author Organization [facility] Address [address] [place] [phone] Care Team Providers Care Performance Test Consultant Name Role Phone Devin (RETIRED) Killian PAUL [...] Problem Status W/U Status Risk Notes Problem [id number] Colon cancer screening (Z12.11) Active confirmed Problem 489755413 Personal history of colonic polyps (Z86.010) Active confirmed Vital Signs Temperature 97.7 degrees Fahrenheit 06/21/20 23 Blood pressure systolic 000 mm Hg 06/21/20 23 Blood pressure diastolic 00 mm Hg 023 Height 6 ft 1 in in 06/21/2023 Weight 238 lb 2 oz lbs 06/21/2023 BMI 31.41 kg/m2 06/21/2023 Encounters Encounter Location Date Provider Diagnosis [facility] [address] [place] [address] 06/21/2023 Jt Bass Jr Colon cancer screening [...] * TOBIN JARVIS RDOB:1949 (73 yo M)Acc No.[id number]:06/21/2023 Progress Notes Patient:?JARVIS RUDD Provider:?Jt Bass MD :1950???Age:73 Y???Sex:Male Darwin e:06/21/2023 Address:[address] [place] [address] , [facility] Pcp:Killian Beltran, DO Subjective: * Chief Complaints: [...] MD Date:?1 08/21/2022 Generated for Lindsay banks/Vel/eTransmitting on:?11/20/2024 11:25 AM EDT History and Physical Notes * [...]
--- OUTSIDE RECORDS SUMMARY | 2024-11-20 11:26 | XMS_ITS | Patient Health Record ---
Author Organization [facility] Address [address] [place] [phone] Care Team Providers Care Vulcanizing Machine Operator Name Role Phone Devin (RETIRED) Killian PAUL Primary Care Provid er Unavailable Kali Grace Jt Unavailable [phone] Allergies No Known Allergies Reason For Referral [...] Problem Status W/U Status Risk Notes Problem 682948459 Colon cancer screening (Z12.11) Active confirmed Problem 774346451 Personal history of colonic polyps (Z86.010) Active confirmed Problem History of polyp of colon (833598221) History of colon polyps (Z86.010) Active confirmed Plan Of Treatment Future Test Test Name Order Date COLONOSCOPY 06/21/2023 Insurance Providers Payer Name Payer Address Payer Phone Subscriber Number Group Number Insured Name Patient Relationship to Insured Coverage Start Date Coverage End Date MEDICARE OF [place] [address] [place] [address] [id number] JARVIS ROLLINS Self - patient is the insured [facility] [address] [place] [address] [id number] JARVIS ROLLINS Self - patient is the insured Medical (General) History Medical History History ICD Code Hypertension Hyperlipidemia Diverticulosis Colonoscopy 02/05, tubular adenoma, five- year followup BPH/elevated PSA Surgical History Surgery Date(Month/Year) Rotator cuff surgery x2 Appendectomy Basal cell carcinoma TURP 07/31
== END 2024-11-20 10:38 | disposition home or self-care (01) ==
LOC: HO.HMCSH 09:58
PROVIDERS: PCP Internal Medicine; Visit Provider Physician Assistant Medical
DX: Z09 Encounter for follow-up examination after completed treatment for conditions other than malignant neoplasm (principal); N40.0 Benign prostatic hyperplasia without lower urinary tract symptoms; R97.20 Elevated prostate specific antigen [PSA]; I10 Essential (primary) hypertension; E78.00 Pure hypercholesterolemia, unspecified; R74.01 Elevation of levels of liver transaminase levels; K57.90 Diverticulosis of intestine, part unspecified, without perforation or abscess without bleeding; E83.19 Other disorders of iron metabolism; R63.8 Other symptoms and signs concerning food and fluid intake; E66.811 Obesity, class 1; Z68.32 Body mass index [BMI] 32.0-32.9, adult

== ENCOUNTER → 2024-11-20 09:58 | Outpatient (BNVA) | payer MEDICARE, BC, SELFPAY | PROVIDERS: PCP Internal Medicine; Visit Provider Physician Assistant Medical | DX: Z09 Encounter for follow-up examination after completed treatment for conditions other than malignant neoplasm (principal); N40.0 Benign prostatic hyperplasia without lower urinary tract symptoms; R97.20 Elevated prostate specific antigen [PSA]; E78.00 Pure hypercholesterolemia, unspecified; I10 Essential (primary) hypertension; R74.01 Elevation of levels of liver transaminase levels; K57.90 Diverticulosis of intestine, part unspecified, without perforation or abscess without bleeding; E83.19 Other disorders of iron metabolism; R63.8 Other symptoms and signs concerning food and fluid intake; E66.811 Obesity, class 1; Z68.32 Body mass index [BMI] 32.0-32.9, adult; Z71.3 Dietary counseling and surveillance | CPT/HCPCS: 96127; 99202 ==

== ENCOUNTER 2025-02-11 08:57 | Outpatient (AMB) | payer MEDICARE, BC, SELFPAY ==
--- NOTE | 2025-02-11 08:57 | A.OFFPC_ITS ---
Vital Signs 02/11/25 08:58 Height 6 ft Weight 231 lb BMI 31.3 BP 125/72 Respiration 16 Pulse 77 Pulse Source Pulse Oximeter Temp 97.6 F Temp Source Temporal Artery Scan Pulse Oximetry (%) 97 Oxygen Delivery Method Room Air Intake Visit Reasons: Chronic cough from medications City Letter Carrier Required: No Accompanied by: Self / Same As Patient Allergies HAYFEVER Allergy (Mild, Uncoded 02/11/25 09:00) ITCHY EYES Tobacco use date assessed: 02/11/25 Fall risk assessment: No Falls in past year Last assessed Fall Risk: 02/11/25 Dental Screening Dental Screen Date: 02/11/25 Did you have a dental visit in the last 12 months?: Yes Did you have a dental problem in the last 6 months where you did not have access to dental care?: No Was dental information given to patient?: Patient has dentist [facility] Medical History Class 1 obesity with body mass index (BMI) of 32.0 to 32.9 in adult Excessive intake of thiamine Elevated ALT measurement Iron overload Elevated ferritin Seasonal allergies Prostatitis Bladder outlet obstruction Internal hemorrhoids Migraine headache Elevated cholesterol HTN (hypertension) Diverticulosis Erectile dysfunction Gross hematuria Diverticulitis Elevated PSA BPH (benign prostatic hyperplasia) Recurrent left inguinal hernia Left inguinal hernia Surgical History Hx of transurethral resection of prostate Hx of basal cell carcinoma excision Hx of rotator cuff surgery Hx of colonoscopy (~08/11/23) History of appendectomy History of hernia repair History of prostate biopsy Family History (Updated 02/11/25 @ 09:03 by NETTE Valladares) Father No problems noted. Mother No problems noted. Social History (Updated 02/11/25 @ 09:03 by NETTE Valladares) Housing: Condominium Alcohol intake: current Alcohol intake frequency: a few times a month Patient Tobacco Use Status: Former Tobacco user service: Yes Current occupational status: retired Cognitive needs: No Hearing needs: No Vision needs: Yes (reading glasses) Questionnaire PHQ-9 Over the last 2 weeks, how often have you been bothered by any of the following problems? 1. Little interest or pleasure in doing things: not at all 2. Feeling down, depressed, or hopeless: not at all 3. Trouble falling or staying asleep, or sleeping too much: not at all 4. Feeling tired or having little energy: not at all 5. Poor appetite or overeating: not at all 6. Feeling bad about yourself - or that you are a failure or have let yourself or your family down: not at all 7. Trouble concentrating on things, such as reading the newspaper or watching television: not at all 8. Moving or speaking so slowly that other people could have noticed. Or the opposite - being so fidgety or restless that you have been moving around a lot more than usual: not at all 9. Thoughts that you would be better off or of hurting yourself in some way: not at all Total score: 0 Source: Developed by Drs. Killian Hood, Lakia West, Sergey Ledezma and colleagues, with an educational yaa from [employer] Thrive Questionnaire Date Thrive assessed: 02/11/25 I am a: Patient What is your living situation today?: I have a steady place to live Within the past 12 months, did the food you bought not last and you didn't have the money to get more?: Never true Within the past 12 months, did you worry whether your food would run out before you got money to buy more?: Never true Do you have trouble paying for medicines?: No Do you have trouble getting transportation to medical appointments?: No Do you have trouble paying your heating and electricity bill?: No Do you have trouble taking care of your child, family member or friend?: No Do you have trouble with day-to-day activities such as bathing, preparing meals, shopping, managing finances, etc.?: No Are you currently unemployed and looking for a job?: No Are you interested in more education?: No Please select the resources that you would like help with: None THRIVE Score: 0 AUDIT C Alcohol Use Questionnaire (AUDIT-C) 1. How often do you have a drink containing alcohol?: Monthly or less 2. How many drinks containing alcohol do you have on a typical day when you are drinking?: 1 or 2 3. How often do you have six or more drinks on one occasion?: Never Total Score: 1 VEENA-7 AMB Questionnaire VEENA-7 Date VEENA - 7 assessed: 02/11/25 Feeling nervous, anxious, or on edge: 0 = Not at all Not being able to stop or control worryin = Not at all Worrying too much about different things: 0 = Not at all Trouble relaxin = Not at all Being so restless that it is hard to sit still: 0 = Not at all Becoming easily annoyed or irritable: 0 = Not at all Feeling afraid as if something awful might happen: 0 = Not at all Total VEENA-7 score (0-4 normal; 5-9 mild; 10-14 moderate; 15-21 severe): 0 Source: Developed by Drs. Killian Hood, Lakia West, Sergey Ledezma and colleagues, with an educational yaa from [employer]. Physical exam (Primary Care) Vital Signs: Last Vital Signs Temp 97.6 F 02/11/25 08:58 Pulse 77 02/11/25 08:58 Resp 16 02/11/25 08:58 BP 125/72 02/11/25 08:58 Pulse Ox 97 02/11/25 08:58 Oxygen Delivery Method Room Air 02/11/25 08:58 BMI result Body Mass Index 31.3 Tobacco/Smoking Status: Tobacco use Status Tobacco use date assessed 02/11/25 02/11/25 09:04 Patient Tobacco Use Status Former Tobacco user 02/11/25 09:04 PHQ-9: PHQ-9 Score PHQ-9: Total score 0 02/11/25 09:04 Thrive Assessment: Date of Thrive Assessment Date Thrive assessed 02/11/25 02/11/25 09:04 Coding Level of Care Code Est Pt Level 4 (17454) Complex EM visit Add On G2211 Diagnoses Right inguinal hernia K40.90 Cough due to JUAN inhibitor R05.8; T46.4X5A Assessment & Plan Assessment & Plan (1) Right inguinal hernia: Code(s): K40.90 - Unilateral inguinal hernia, without obstruction or gangrene, not specified as recurrent Plan: No hernia on physical exam. Inguinal area is tender. . Ultrasound ordered and surgical appt requested. (2) Cough due to JUAN inhibitor: Code(s): R05.8 - Other specified cough; T46.4X5A - Adverse effect of grrfalbwmdz-ziwtnarayt-tlowwb inhibitors, initial encounter Plan: Combination pill, Amlodipine and Benzapril stopped. Pt was advised to check BP everyday, maintain a log and follow up in 4 weeks. Addnl meds will be started then Plan History of Present Illness - The patient is a 74-year-old male presenting with a chronic cough. - The cough began a few years ago, initially mild and thought to be due to allergies or dust. - Recently, the cough has worsened, becoming more frequent and dry, occasionally producing sputum. - The cough is persistent, disturbing sleep and triggered by talking. - The patient suspects the cough is medication-related, specifically benazepril. - Hematuria occurred two months ago, attributed to coughing and an enlarged prostate. - The patient reports a suspected inguinal hernia, with pain localized to the lower abdomen, exacerbated by coughing. - Previous hernia surgeries and an appendectomy were performed by Dr. Kaushik Gutierrez. - Hypertension is managed with benazepril and amlodipine, with a plan to discontinue benazepril due to suspected cough side effects. - The patient has a history of sciatica, which has limited physical activity recently. - The patient was previously active, walking daily and playing golf until pain limited these activities. Social History - The patient is retired from the [employer] service and previously engaged in regul ar physical activity, including walking and playing golf. - The patient lives alone and has one son residing in [place]. Review of Systems - Respiratory: Reports chronic dry cough, occasionally productive, worsens at night and with talking. - Genitourinary: Reports hematuria two months ago, attributed to coughing and enlarged prostate. - Musculoskeletal: Reports pain in the lower abdomen, suspected hernia, exacerbated by coughing. - Neurological: Reports history of sciatica, limiting physical activity. Physical Exam General: Cooperative and healthy appearing Nutritional Appearance: Well nourished Orientation/consciousness: Patient oriented x3 Limitations: No limitations Head: Normal to inspection General: Appearance normal, both eyes and all related structures Neck: Normal visual inspection Chest: Normal palpation of entire chest wall Respiratory: Chronic cough, usually dry, occasionally productive, worsens at night and with talking. ormal respiratory effort Neurology: Patient oriented x3. Results Plan 1. Chronic Cough - Discontinue benazepril to assess if it is the cause of the cough, monitor symptoms. - Maintain a daily log of cough frequency and severity for 30 days. 2. Hematuria - Hematuria linked to coughing and enlarged prostate, no immediate treatment needed. 3. Suspected Inguinal Hernia - Referral to Dr. Kaushik Gutierrez for further evaluation of the suspected hernia. - Schedule an ultrasound to investigate hernia or other abdominal concerns. 4. Hypertension - Stop benazepril, continue home blood pressure monitoring. - Re-evaluate blood pressure management in four weeks. 5. Sciatica - Continue with home exercises as tolerated, focus on managing pain. Discussion Notes During the visit, we discussed the potential link between the patient's chronic cough and benazepril, deciding to discontinue the medication and monitor symptoms. We also addressed the patient's hematuria, likely related to coughing and an enlarged prostate, with no immediate intervention needed. A referral to Dr. Kaushik Gutierrez was made for the suspected inguinal hernia, and an ultrasound was planned to further investigate. The patient was advised to maintain a daily log of cough symptoms and blood pressure readings, with a follow-up scheduled in four weeks to reassess management strategies. Patient Instructions - Stop taking benazepril and monitor your cough symptoms. - Keep a daily log of your cough and blood pressure readings. - Attend the ultrasound appointment when scheduled. - Follow up with Dr. Kaushik Gutierrez for hernia evaluation. - Continue home exercises for sciatica as tolerated. Orders: Orders US pelvic complete Today K40.90 - Unilateral inguinal hernia, without obstruction or gangrene, not specified as recurrent Referrals General Surgery Referral K40.90 - Unilateral inguinal hernia, without obstruction or gangrene, not specified as recurrent Medications: Discontinued amlodipine-benazepril 5-10 mg Discontinued Reason: Doctor's Order 1 cap PO DAILY 90 caps 1RF
[2025-02-11 08:58] VITALS: BP 125/72; PULSE 77; RESP 16; TEMP 36.4; O2SAT 97; BMI 31.3
== END 2025-02-11 09:38 | disposition home or self-care (01) ==
LOC: HO.HMCSH 08:57
PROVIDERS: PCP Internal Medicine; Visit Provider Internal Medicine
DX: K40.90 Unilateral inguinal hernia, without obstruction or gangrene, not specified as recurrent (principal); R05.8 Other specified cough; T46.4X5A Adverse effect of angiotensin-converting-enzyme inhibitors, initial encounter

== ENCOUNTER → 2025-02-11 08:57 | Outpatient (BNVA) | payer MEDICARE, BC, SELFPAY | PROVIDERS: PCP Internal Medicine; Visit Provider Internal Medicine | DX: K40.90 Unilateral inguinal hernia, without obstruction or gangrene, not specified as recurrent (principal); R05.8 Other specified cough; T46.4X5D Adverse effect of angiotensin-converting-enzyme inhibitors, subsequent encounter | CPT/HCPCS: 99212 ==

== ENCOUNTER 2025-03-11 10:09 | Outpatient (AMB) | payer MEDICARE, BC, SELFPAY ==
--- NOTE | 2025-03-11 10:18 | MHC.PC.OV ---
Vital Signs 03/11/25 10:19 Height 6 ft Weight 230 lb BMI 31.2 BP 112/70 Respiration 16 Pulse 66 Pulse Source Pulse Oximeter Temp 97.7 F Temp Source Temporal Artery Scan Pulse Oximetry (%) 98 Oxygen Delivery Method Room Air Intake Visit Reasons: follow up Plumbing Instructor Required: No Accompanied by: Self / Same As Patient Allergies HAYFEVER Allergy (Mild, Uncoded 03/11/25 10:25) ITCHY EYES Tobacco use date assessed: 03/11/25 Dental Screening Dental Screen Date: 02/11/25 [facility] Medical History Class 1 obesity with body mass index (BMI) of 32.0 to 32.9 in adult Excessive intake of thiamine Elevated ALT measurement Iron overload Elevated ferritin Seasonal allergies Prostatitis Bladder outlet obstruction Internal hemorrhoids Migraine headache Elevated cholesterol HTN (hypertension) Diverticulosis Erectile dysfunction Gross hematuria Diverticulitis Elevated PSA BPH (benign prostatic hyperplasia) Recurrent left inguinal hernia Left inguinal hernia Surgical History Hx of transurethral resection of prostate Hx of basal cell carcinoma excision Hx of rotator cuff surgery Hx of colonoscopy (~08/11/23) History of appendectomy History of hernia repair History of prostate biopsy Family History Father No problems noted. Mother No problems noted. Social History Housing: Condominium Alcohol intake: current Alcohol intake frequency: a few times a month Patient Tobacco Use Status: Former Tobacco user service: Yes Current occupational status: retired Cognitive needs: No Hearing needs: No Vision needs: Yes (reading glasses) Questionnaire PHQ-9 Over the last 2 weeks, how often have you been bothered by any of the following problems? 1. Little interest or pleasure in doing things: not at all 2. Feeling down, depressed, or hopeless: not at all 3. Trouble falling or staying asleep, or sleeping too much: not at all 4. Feeling tired or having little energy: not at all 5. Poor appetite or overeating: not at all 6. Feeling bad about yourself - or that you are a failure or have let yourself or your family down: not at all 7. Trouble concentrating on things, such as reading the newspaper or watching television: not at all 8. Moving or speaking so slowly that other people could have noticed. Or the opposite - being so fidgety or restless that you have been moving around a lot more than usual: not at all 9. Thoughts that you would be better off or of hurting yourself in some way: not at all Total score: 0 Source: Developed by Drs. Killian Hood, Lakia West, Sergey Ledezma and colleagues, with an educational yaa from [employer]. Thrive Questionnaire Date Thrive assessed: 02/11/25 I am a: Patient What is your living situation today?: I have a steady place to live Within the past 12 months, did the food you bought not last and you didn't have the money to get more?: Never true Within the past 12 months, did you worry whether your food would run out before you got money to buy more?: Never true Do you have trouble paying for medicines?: No Do you have trouble getting transportation to medical appointments?: No Do you have trouble paying your heating and electricity bill?: No Do you have trouble taking care of your child, family member or friend?: No Do you have trouble with day-to-day activities such as bathing, preparing meals, shopping, managing finances, etc.?: No Are you currently unemployed and looking for a job?: No Are you interested in more education?: No Please select the resources that you would like help with: None THRIVE Score: 0 AUDIT C Alcohol Use Questionnaire (AUDIT-C) 1. How often do you have a drink containing alcohol?: Monthly or less 2. How many drinks containing alcohol do you have on a typical day when you are drinking?: 1 or 2 3. How often do you have six or more drinks on one occasion?: Never Total Score: 1 VEENA-7 AMB Questionnaire VEENA-7 Date VEENA - 7 assessed: 02/11/25 Feeling nervous, anxious, or on edge: 0 = Not at all Not being able to stop or control worryin = Not at all Worrying too much about different things: 0 = Not at all Trouble relaxin = Not at all Being so restless that it is hard to sit still: 0 = Not at all Becoming easily annoyed or irritable: 0 = Not at all Feeling afraid as if something awful might happen: 0 = Not at all Total VEENA-7 score (0-4 normal; 5-9 mild; 10-14 moderate; 15-21 severe): 0 Source: Developed by Drs. Killian Hood, Lakia West, Sergey Ledezma and colleagues, with an educational yaa from [employer]. Physical exam (Primary Care) Vital Signs: Last Vital Signs Temp 97.7 F 03/11/25 10:19 Pulse 66 03/11/25 10:19 Resp 16 03/11/25 10:19 BP 112/70 03/11/25 10:19 Pulse Ox 98 03/11/25 10:19 Oxygen Delivery Method Room Air 03/11/25 10:19 BMI result Body Mass Index 31.2 Tobacco/Smoking Status: Tobacco use Status Tobacco use date assessed 03/11/25 03/11/25 10:27 Patient Tobacco Use Status Former Tobacco user 03/11/25 10:21 PHQ-9: PHQ-9 Score PHQ-9: Total score 0 03/11/25 10:27 Thrive Assessment: Date of Thrive Assessment Date Thrive assessed 02/11/25 03/11/25 10:21 Coding Level of Care Code Est Pt Level 4 (75571) Complex EM visit Add On G2211 Diagnoses HTN (hypertension) I10 Assessment & Plan Assessment & Plan (1) HTN (hypertension): Code(s): I10 - Essential (primary) hypertension Category: Medical Plan: History of Present Illness - The patient is a 74-year-old male presenting with follow-up for inguinal hernia and associated symptoms. - The patient had a painful inguinal hernia and was referred to a surgeon, Dr. Gutierrez, for further evaluation. - The patient experienced a cough induced by benzedril, which led to bleeding from the prostate as confirmed by his urologist. - The cough was severe enough to cause significant discomfort in the groin area, initially suspected to be a hernia but later considered to be muscular strain. - The patient reports an 80% reduction in cough severity after discontinuing benzeprlil, with remaining discomfort attributed to possible inflammation. - The patient has a history of hypertension, previously managed with benazepam, which was discontinued due to side effects. - The patient was advised to monitor blood pressure at home, though he acknowledges the limitations of his home device. - The patient has reduced physical activity due to discomfort but has recently resumed some activities at the health club. Social History - The patient has reduced physical activity due to discomfort but has recently resumed some activities at the health club. - The patient previously played golf five days a week but has ceased due to discomfort during swings. Review of Systems - Respiratory: Reports significant reduction in cough severity, denies current severe cough. - Genitourinary: Reports bleeding from the prostate due to cough, denies other genitourinary symptoms. - Musculoskeletal: Reports discomfort and pain in the groin area, denies other musculoskeletal symptoms. Physical Exam General: Cooperative and healthy appearing Nutritional Appearance: Well nourished Orientation/consciousness: Patient oriented x3 Limitations: No limitations Head: Normal to inspection General: Appearance normal, both eyes and all related structures Neck: Normal visual inspection Chest: Normal palpation of entire chest wall Respiratory: Improved cough, not forceful, 80% reduction ormal respiratory effort Neurology: Patient oriented x3 Results Plan 1. Inguinal Hernia - The patient is scheduled to see Dr. Gutierrez for surgical evaluation of the inguinal hernia. - Advised to maintain the appointment for reassurance and further management. 2. Cough Induced By Medication - Discontinued benzedril, resulting in an 80% reduction in cough severity. 3. Prostate Bleeding Due To Cough - Urologist confirmed bleeding was due to cough, not prostate pathology. 4. Muscular Strain In The Groin Area - Suspected muscular strain due to severe coughing, advised to monitor symptoms. 5. Hypertension - Discontinued benazepam due to side effects, advised to monitor blood pressure at home. Discussion Notes I discussed with the patient the importance of keeping the appointment with Dr. Gutierrez for further evaluation of the inguinal hernia. We reviewed the reduction in cough severity following the discontinuation of benzedril and confirmed with the urologist that the prostate bleeding was due to the cough. I advised the patient to continue monitoring his blood pressure at home and to resume physical activities gradually as tolerated. We agreed to follow up in six months unless symptoms worsen. Patient Instructions - Keep the appointment with Dr. Gutierrez for hernia evaluation. - Monitor blood pressure at home regularly. - Gradually resume physical activities as tolerated. - Follow up in six months or sooner if symptoms worsen.
[2025-03-11 10:19] VITALS: BP 112/70; PULSE 66; RESP 16; TEMP 36.5; O2SAT 98; BMI 31.2
== END 2025-03-11 10:34 | disposition home or self-care (01) ==
LOC: HO.HMCSH 10:09
PROVIDERS: PCP Internal Medicine; Visit Provider Internal Medicine
DX: I10 Essential (primary) hypertension (principal)

== ENCOUNTER → 2025-03-11 10:09 | Outpatient (BNVA) | payer MEDICARE, BC, SELFPAY | PROVIDERS: PCP Internal Medicine; Visit Provider Internal Medicine | DX: I10 Essential (primary) hypertension (principal) | CPT/HCPCS: 99212 ==

== ENCOUNTER 2025-03-20 15:19 | Outpatient (AMB) | payer MEDICARE, BC, SELFPAY ==
--- NOTE | 2025-03-20 15:21 | MHC.OFFVIS ---
Vital Signs 03/20/25 15:37 Height 6 ft Weight 237 lb BMI 32.1 BP 120/71 Blood Pressure Location Lt brachial Position Sitting Pulse 77 Intake Visit Reasons: unilateral hernia Intake Note: Patient is seen in office for evaluation of an inguinal hernia. Pt c/o: was taking some meds that caused excessive coughing and now might have a hernia, right groin (unsure) had pain at the time, does not feel a lump Imaging: Zero Ec Teacher Required: No Accompanied by: Self / Same As Patient Allergies HAYFEVER Allergy (Mild, Uncoded 03/20/25 15:29) ITCHY EYES Medication List - Last Reconciled 03/20/25 by Kaushik Gutierrez MD candesartan-hydrochlorothiazid 32-12.5 mg 1 tab PO DAILY finasteride 5 mg PO DAILY multivitamin 1 tab PO DAILY simvastatin 40 mg PO BEDTIME trazodone 25 mg (1/2 x 50 mg) PO BEDTIME PRN [Vitamin C ] HPI Comments Details: 74-year-old male patient presenting for evaluation of a possible right inguinal hernia. He reports a recent history of increased coughing approximately 5 weeks ago and developed severe pain in the right groin. The pain persisted for several weeks due to the persistent coughing. He was uncertain if there was a palpable lump in the right groin. Patient has subsequently determined that his cough was due to 1 of his medications and after stopping the medication the cough improved. He now reports minimal to no pain in the right groin and denies any palpable lump. He presents today for evaluation for possible right inguinal hernia. He denies nausea, vomiting, or changes in his bowel habits. He denies any bleeding per rectum. [facility] Medical History Class 1 obesity with body mass index (BMI) of 32.0 to 32.9 in adult Excessive intake of thiamine Elevated ALT measurement Iron overload Elevated ferritin Seasonal allergies Prostatitis Bladder outlet obstruction Internal hemorrhoids Migraine headache Elevated cholesterol HTN (hypertension) Diverticulosis Erectile dysfunction Gross hematuria Diverticulitis Elevated PSA BPH (benign prostatic hyperplasia) Recurrent left inguinal hernia Left inguinal hernia Surgical History Hx of transurethral resection of prostate Hx of basal cell carcinoma excision Hx of rotator cuff surgery Hx of colonoscopy (~08/11/23) History of appendectomy History of hernia repair History of prostate biopsy Family History Father No problems noted. Mother No problems noted. Social History [facility] Alcohol intake: current Alcohol intake frequency: a few times a month Patient Tobacco Use Status: Former Tobacco user service: Yes Current occupational status: retired Cognitive needs: No Hearing needs: No Vision needs: Yes (reading glasses) Review of Systems Const All systems reviewed & are unremarkable except as noted in HPI and below Physical Exam Vital Signs: Last Vital Signs Pulse 77 03/20/25 15:37 BP 120/71 03/20/25 15:37 BMI result Body Mass Index 32.1 Const General: cooperative and no acute distress Nutritional Appearance: well nourished Orientation/consciousness: patient oriented x3 Limitations: no limitations HEENT Head: Yes normocephalic and Yes atraumatic Ears: hearing grossly normal bilaterally Resp Effort & Inspection: normal respiratory effort, no audible wheezes, no cough and no respiratory distress Cardio Jugular venous distension: no JVD GI Other: Examination in the standing position with Valsalva maneuvers revealed no palpable hernia. This has minimal tenderness to palpation. No left inguinal hernia could be appreciated as well. Inspection: Yes normal to inspection Skin Other: Warm, dry, no rash Neuro General: patient oriented x3 Extrem General: Yes no clubbing, cyanosis or edema Assessment & Plan Assessment & Plan (1) Right groin pain: Code(s): R10.31 - Right lower quadrant pain Category: Medical Plan 74-year-old male patient presenting for evaluation of pain in the right groin. He developed the pain with a severe coughing episode possibly related to medications. He is now off the medication in his cough is improved, as has the right groin pain. On examination today no definite hernia could be identified and there is no tenderness to palpation. I recommended observation with no surgical intervention at this time. He is welcome to call should the symptoms return. Coding Level of Care Code New Pt Level 4 (57745) Diagnoses Right groin pain R10.31
--- OUTSIDE RECORDS SUMMARY | 2025-03-20 15:26 | XMS_ITS | Patient Health Record ---
Author Organization [facility] Address [address] [place] [id number] Care Team Providers Care E M Assembler Name Role Phone Devin (RETIRED) Killian PAUL Primary Care Provid er Unavailable Kali Grace Jt Unavailable [phone] Allergies No Known Allergies Reason For Referral [...] Problem Status W/U Status Risk Notes Problem [id number] Colon cancer screening (Z12.11) Active confirmed Problem [id number] Personal history of colonic polyps (Z86.010) Active confirmed Problem History of colon polyps (Z86.010) Active confirmed Plan Of Treatment Future Test Test Name Order Date COLONOSCOPY 06/21/2023 Insurance Providers Payer Name Payer Address Payer Phone Subscriber Number Group Number Insured Name Patient Relationship to Insured Coverage Start Date Coverage End Date MEDICARE OF [place] [address] [place] [address] [id number] THIERNO RODRIGUEZ JARVIS Self - patient is the insured [facility] [address] [place] [address] [phone] [id number] THIERNO RODRIGUEZ JARVIS Self - patient is the insured Medical (General) History Medical History History ICD Code Hypertension Hyperlipidemia Diverticulosis Colonoscopy 02/05, tubular adenoma, five- year followup BPH/elevated PSA Surgical History Surgery Date(Month/Year) Rotator cuff surgery x2 Appendectomy Basal cell carcinoma TURP 07/31
[2025-03-20 15:37] VITALS: BP 120/71; PULSE 77; BMI 32.1
== END 2025-03-20 15:45 | disposition home or self-care (01) ==
LOC: HO.HGS 15:19
PROVIDERS: PCP Internal Medicine; Visit Provider Surgery
DX: R10.31 Right lower quadrant pain (principal)
CPT/HCPCS: 99204

== ENCOUNTER → 2025-03-20 15:19 | Outpatient (BNVA) | payer MEDICARE, BC, SELFPAY | PROVIDERS: PCP Internal Medicine; Visit Provider Surgery | DX: R10.31 Right lower quadrant pain (principal) | CPT/HCPCS: 99202 ==

== ENCOUNTER 2025-05-14 06:01 | Outpatient (REF) | payer MEDICARE, BC, SELFPAY ==
[2025-05-14 10:21] LABS: Appearance Urine Turbid; Glucose Urine UA Negative (Negative); PH 5.0 (5.0-9.0); Specific Gravity - Urine 1.025 (1.005-1.025); UMIC TRIGGER UACC YES
[2025-05-14 10:34] LABS: MANUAL DIFF FLAG NO
[2025-05-14 10:40] LABS: Hematocrit 42.5 % (42.0-52.0); Hemoglobin 14.8 g/dl (14.0-18.0); Imm Gran Abs Auto 0.03 X10*3/uL (0.00-0.03); Imm Gran Pct Auto 0.4 % (0.0-0.4); Lymphocytes Absolute Auto 1.6 X10*3/uL (1.2-4.9); Mean Corpuscular HGB Conc 34.8 g/dl (31.0-36.0); Mean Corpuscular Hemoglobin 31.6 pg (27.0-33.0); Mean Corpuscular Volume 90.6 fL (80.0-98.0); NRBC Abs Auto 0.000 X10*3/uL (0.0-0.012); NRBC Pct Auto 0.0 /100WBC (0.0-0.2); Platelet Count 217 X10*3/uL (160-400); Red Blood Count 4.69 X10*6/uL (4.60-5.80); White Blood Count 7.0 X10*3/uL (4.8-10.8)
[2025-05-14 10:52] LABS: Hemoglobin A1C 142.9817 umol/L; Total Hemoglobin (HGBA1C) 3766.8131 umol/L
[2025-05-14 11:23] LABS: Alanine Aminotransferase 26 U/L (0-40); Albumin Level 4.3 g/dL (3.5-5.0); Alkaline Phosphatase 72 U/L (39-117); Anion Gap 13 (12-20); Aspartate Amino Transferase 28 U/L (5-37); Blood Urea Nitrogen 19 mg/dL (9-16); Calcium 8.7 mg/dL (8.4-10.2); Carbon Dioxide 26 mmol/L (22-29); Chloride 108 mmol/L (96-108); Cholesterol 160 mg/dL (<200); Estimated Glomerular Filt Rate > 60; HDL Cholesterol 43 mg/dL (>40); Magnesium 2.1 mg/dL (1.6-2.6); Potassium 3.7 mmol/L (3.3-5.1); Sodium 143 mmol/L (135-145); Total Protein 7.1 g/dL (6.5-8.0); Triglycerides 122 mg/dL (<150)
[2025-05-14 11:48] LABS: PSA,Total (Free>4and<10) 3.20 ng/mL (0.00-4.00)
[2025-05-14 12:02] LABS: Folate 14.3 ng/mL (> or = 4.0); Vitamin B12 423 pg/mL (200-900)
== END 2025-05-14 06:02 | disposition home or self-care (01) ==
LOC: HO.HMGCLDS 06:01
PROVIDERS: PCP Internal Medicine; Visit Provider Physician Assistant Medical
DX: Z00.00 Encounter for general adult medical examination without abnormal findings (principal); Z12.5 Encounter for screening for malignant neoplasm of prostate; Z13.1 Encounter for screening for diabetes mellitus; Z13.29 Encounter for screening for other suspected endocrine disorder; Z13.6 Encounter for screening for cardiovascular disorders
CPT/HCPCS: 36415; 80053; 80061; 80076; 81001; 82248; 82306; 82607; 82746; 83036; 83735; 84153; 84443; 85025; 86140

== ENCOUNTER 2025-05-26 09:00 | Outpatient (AMB) | payer MEDICARE, BC, SELFPAY ==
--- NOTE | 2025-05-26 08:58 | MHC.PC.OV ---
Vital Signs 05/26/25 08:59 Height 6 ft Weight 232 lb 2 oz BMI 31.5 BP 103/60 Blood Pressure Location Rt brachial Position Sitting Respiration 16 Pulse 74 Pulse Source Pulse Oximeter Temp 96.8 F Temp Source Temporal Artery Scan Pulse Oximetry (%) 97 Oxygen Delivery Method Room Air Intake Visit Reasons: 6 month f/u Social Professionals Required: No Allergies HAYFEVER Allergy (Mild, Uncoded 05/26/25 09:17) ITCHY EYES Medication List - Last Reconciled 05/26/25 by Marlen Lazaro PA-C candesartan-hydrochlorothiazid 32-12.5 mg 1 tab PO DAILY finasteride 5 mg PO DAILY multivitamin 1 tab PO DAILY simvastatin 40 mg PO BEDTIME trazodone 50 mg PO BEDTIME PRN [Vitamin C ] Tobacco use date assessed: 05/26/25 Dental Screening Dental Screen Date: 05/26/25 Did you have a dental visit in the last 12 months?: Yes HPI 6 month f/u HPI Details The patient is a 75-year-old male presenting for a six-month follow-up visit. The patient reports a history of insomnia, for which he was prescribed trazodone. Initially, a half dose was ineffective, but a full dose of 50 mg improved his sleep quality, although he still does not sleep through the night. He has refilled the prescription and is currently taking 50 mg nightly. The patient has a history of elevated prostate-specific antigen (PSA) levels, which are being monitored. He experienced bleeding associated with a harsh cough, which was attributed to medication-induced coughing from benazepril. The cough resolved after discontinuing benazepril, and his PSA levels were normal at the last check. The patient suspects a urinary tract infection due to transient symptoms experienced while driving, but these resolved spontaneously. He has a lifelong history of flatfoot, which causes pronation and has led to hip pain, exacerbated by aging. Recently, he experienced severe hip pain, alleviated temporarily by Aspercreme with lidocaine. A heart murmur was detected during the examination, but the patient denies any associated symptoms such as chest pain or dyspnea. The patient is in a prediabetic state with a hemoglobin A1c of 5.6%, and he has been advised to reduce sugar intake. Social History - Exercise: The patient goes to the gym daily, focusing on arm and chest exercises. [facility] Medical History (Updated 05/26/25 @ 09:36 by Marlen Lazaro PA-C) Prediabetes Heart murmur Hip pain Flatfoot UTI (urinary tract infection) Insomnia Class 1 obesity with body mass index (BMI) of 32.0 to 32.9 in adult Excessive intake of thiamine Elevated ALT measurement Iron overload Elevated ferritin Seasonal allergies Prostatitis Bladder outlet obstruction Internal hemorrhoids Migraine headache Elevated cholesterol HTN (hypertension) Diverticulosis Erectile dysfunction Gross hematuria Diverticulitis Elevated PSA BPH (benign prostatic hyperplasia) Recurrent left inguinal hernia Left inguinal hernia Surgical History Hx of transurethral resection of prostate Hx of basal cell carcinoma excision Hx of rotator cuff surgery Hx of colonoscopy (~08/11/23) History of appendectomy History of hernia repair History of prostate biopsy Family History Father No problems noted. Mother No problems noted. Social History Housing: Condominium Alcohol intake: current Alcohol intake frequency: a few times a month Patient Tobacco Use Status: Former Tobacco user service: Yes Current occupational status: retired Cognitive needs: No Hearing needs: No Vision needs: Yes (reading glasses) Questionnaire PHQ-9 Over the last 2 weeks, how often have you been bothered by any of the following problems? 1. Little interest or pleasure in doing things: not at all 2. Feeling down, depressed, or hopeless: not at all 3. Trouble falling or staying asleep, or sleeping too much: not at all 4. Feeling tired or having little energy: not at all 5. Poor appetite or overeating: not at all 6. Feeling bad about yourself - or that you are a failure or have let yourself or your family down: not at all 7. Trouble concentrating on things, such as reading the newspaper or watching television: not at all 8. Moving or speaking so slowly that other people could have noticed. Or the opposite - being so fidgety or restless that you have been moving around a lot more than usual: not at all 9. Thoughts that you would be better off or of hurting yourself in some way: not at all Total score: 0 Depression Screening Interpretation: Negative Depression Screening Done: Yes 53435 - PHQ-9 Billing: Yes Source: Developed by Drs. Killian Hood, Lakia West, Sergey Ledezma and colleagues, with an educational yaa from [employer]. Thrive Questionnaire Date Thrive assessed: 05/26/25 I am a: Patient What is your living situation today?: I have a steady place to live Within the past 12 months, did the food you bought not last and you didn't have the money to get more?: Never true Within the past 12 months, did you worry whether your food would run out before you got money to buy more?: Never true Do you have trouble paying for medicines?: No Do you have trouble getting transportation to medical appointments?: No Do you have trouble paying your heating and electricity bill?: No Do you have trouble taking care of your child, family member or friend?: No Do you have trouble with day-to-day activities such as bathing, preparing meals, shopping, managing finances, etc.?: No Are you currently unemployed and looking for a job?: No Are you interested in more education?: No Please select the resources that you would like help with: None THRIVE Score: 0 AUDIT C Alcohol Use Questionnaire (AUDIT-C) 1. How often do you have a drink containing alcohol?: Monthly or less 2. How many drinks containing alcohol do you have on a typical day when you are drinking?: 1 or 2 3. How often do you have six or more drinks on one occasion?: Never Total Score: 1 Score Reviewed/Action Taken: No VEENA-7 AMB Questionnaire VEENA-7 Date VEENA - 7 assessed: 05/26/25 Feeling nervous, anxious, or on edge: 0 = Not at all Not being able to stop or control worryin = Not at all Worrying too much about different things: 0 = Not at all Trouble relaxin = Not at all Being so restless that it is hard to sit still: 0 = Not at all Becoming easily annoyed or irritable: 0 = Not at all Feeling afraid as if something awful might happen: 0 = Not at all Total VEENA-7 score (0-4 normal; 5-9 mild; 10-14 moderate; 15-21 severe): 0 Source: Developed by Drs. Killian Hood, Lakia West, Sergey Ledezma and colleagues, with an educational yaa from [employer]. VEENA-7 Assessment Billing VEENA-7 Assessment Tool: VEENA-7 Assessment 33334 Review of Systems Const Details: - General: Denies any new concerns or symptoms. - Cardiovascular: Denies chest pain or dyspnea. - Genitourinary: Reports transient urinary discomfort, denies ongoing urinary symptoms. - Musculoskeletal: Reports hip pain exacerbated by activity, alleviated by topical analgesics. All systems reviewed & are unremarkable except as noted in HPI and below Physical exam (Primary Care) Vital Signs: Last Vital Signs Temp 96.8 F 05/26/25 08:59 Pulse 74 05/26/25 08:59 Resp 16 05/26/25 08:59 BP 103/60 05/26/25 08:59 Pulse Ox 97 05/26/25 08:59 Oxygen Delivery Method Room Air 05/26/25 08:59 Care Plan Goal for BP management: <140/90 at Goal BMI result Body Mass Index 31.5 BMI Assessment/Plan discussion: High BMI High, discussed plan: lifestyle, weight reduction, dietary, physical activity, alcohol moderation and other Tobacco/Smoking Status: Tobacco use Status Tobacco use date assessed 05/26/25 05/26/25 09:04 Patient Tobacco Use Status Former Tobacco user 05/26/25 09:04 PHQ-9: PHQ-9 Score PHQ-9: Total score 0 05/26/25 09:16 Depression Screening Interpretation: Negative Thrive Assessment: Date of Thrive Assessment Date Thrive assessed 05/26/25 05/26/25 09:04 [facility] Other: Appearance: Alert. Oriented X3. No acute distress. Head: Normal external exam. Normocephalic. Atraumatic. Eyes: Pupils are equal, round, and reactive to light. Extraocular movements intact. Conjunctiva and sclera normal. Eyelids normal. Throat: Pharynx normal. Uvula midline. Moist mucous membranes. Neck: Normal inspection. Neck supple. Full range of motion. No adenopathy. Thyroid Normal. No meningeal signs. No neck mass noted. Cardiovascular: Normal heart rate and rhythm. Heart sound normal. Heart murmur noted. Pulses normal throughout. Respiratory: No respiratory distress. Painless inspiration. Back: Full range of motion noted. Skin: Skin warm and dry. Normal skin color. Normal skin turgor. No rashes/lesions/lacerations noted. Extremities: No lower extremity edema. Extremities exhibit normal range of motion. Office Procedures Flu Questionnaire Does the patient have a severe egg allergy?: No Does the patient have severe life threatening allergies?: No Does the patient have a fever or illness today?: No Has the patient ever had Guillain-Augusta Syndrome?: No Has the patient ever had any past reaction to a flu shot?: No Immunizations Fluarix [id number] (PF) 45 mcg (15 mcg x 3)/0.5 mL IM syringe Performing Provider: Marlen Lazaro PA-C [facility] Documented (not given) by: NETTE Valladares on 05/26/25 09:16 Reason Not Given: Received Previously Results Reviewed Results Reviewed: - Labs: Hemoglobin A1c at 5.6%, indicating prediabetes. - Labs: PSA levels were normal at the last check. Coding Level of Care Code Est Pt Level 4 (31962) Complex EM visit Add On G2211 Diagnoses Insomnia G47.00 Elevated PSA R97.20 UTI (urinary tract infection) N39.0 Flatfoot M21.40 Hip pain M25.559 Heart murmur R01.1 Prediabetes R73.03 Additional Codes PHQ-9 - 67962 - PHQ-9 Billing: Yes ([id number]) VEENA-7 Assessment Billing - VEENA-7 Assessment Tool: VEENA-7 Assessment 34649 ([id number]) Assessment & Plan Assessment & Plan (1) Insomnia: Code(s): G47.00 - Insomnia, unspecified Category: Medical Plan: The patient will continue taking trazodone 50 mg nightly for insomnia, as it has improved his sleep quality. (2) Elevated PSA: Code(s): R97.20 - Elevated prostate specific antigen [PSA] Category: Medical Plan: The patient's PSA levels are being monitored, and recent results were normal. No immediate intervention is required. (3) UTI (urinary tract infection): Code(s): N39.0 - Urinary tract infection, site not specified Category: Medical Plan: The patient experienced transient urinary discomfort, which resolved spontaneously. No further action is needed unless symptoms recur. (4) Flatfoot: Code(s): M21.40 - Flat foot [pes planus] (acquired), unspecified foot Category: Medical Plan: The patient has a history of flatfoot, contributing to hip pain. Conservative management with topical analgesics is currently effective. (5) Hip pain: Code(s): M25.559 - Pain in unspecified hip Category: Medical Plan: The patient reports hip pain, likely due to inflammation or arthritis. Meloxicam has been recommended for daily use to manage inflammation. (6) Heart murmur: Code(s): R01.1 - Cardiac murmur, unspecified Category: Medical Plan: A heart murmur was detected, but the patient is asymptomatic. An ultrasound may be considered for baseline assessment if symptoms develop. (7) Prediabetes: Code(s): R73.03 - Prediabetes Category: Medical Plan: The patient is advised to reduce sugar intake to manage prediabetes, as indicated by a hemoglobin A1c of 5.6%. Plan Plan Patient was informed and verbally consented to the use of an ambient scribe for clinic note documentation during this visit. 1. Insomnia The patient will continue taking trazodone 50 mg nightly for insomnia, as it has improved his sleep quality. 2. Elevated Prostate-Specific Antigen (Psa) The patient's PSA levels are being monitored, and recent results were normal. No immediate intervention is required. 3. Urinary Tract Infection (Suspected) The patient experienced transient urinary discomfort, which resolved spontaneously. No further action is needed unless symptoms recur. 4. Flatfoot (Pes Planus) The patient has a history of flatfoot, contributing to hip pain. Conservative management with topical analgesics is currently effective. 5. Hip Pain The patient reports hip pain, likely due to inflammation or arthritis. Meloxicam has been recommended for daily use to manage inflammation. 6. Heart Murmur A heart murmur was detected, but the patient is asymptomatic. An ultrasound may be considered for baseline assessment if symptoms develop. 7. Prediabetes The patient is advised to reduce sugar intake to manage prediabetes, as indicated by a hemoglobin A1c of 5.6%. During the visit, we discussed the management of insomnia with trazodone, which the patient finds effective at 50 mg. We reviewed the patient's PSA levels, which are currently normal, and the plan to monitor them. The patient experienced transient urinary symptoms, likely a self-resolving urinary tract infection, and no further action is needed unless symptoms recur. We addressed the patient's hip pain, likely due to inflammation or arthritis, and recommended meloxicam for management. A heart murmur was detected, and while the patient is asymptomatic, an ultrasound may be considered for baseline assessment if symptoms develop. The patient is advised to reduce sugar intake to manage prediabetes. Orders: Orders Influenza [id number] Immunization Today Z23 - Encounter for immunization Medications: New trazodone 50 mg PO BEDTIME PRN 90 tabs 3RF sleep meloxicam 15 mg PO DAILY 90 tabs 3RF cyclobenzaprine 10 mg PO Q8H 30 tabs 0RF Patient Instructions: - Continue taking trazodone 50 mg nightly for sleep. - Monitor for any urinary symptoms and report if they recur. - Use meloxicam daily for hip pain management. - Reduce sugar intake to manage prediabetes. - Consider an ultrasound for heart murmur if symptoms develop.
[2025-05-26 08:59] VITALS: BP 103/60; PULSE 74; RESP 16; TEMP 36; O2SAT 97; BMI 31.5
== END 2025-05-26 09:41 | disposition home or self-care (01) ==
LOC: HO.HMCSH 09:00
PROVIDERS: PCP Internal Medicine; Visit Provider Physician Assistant Medical
DX: G47.00 Insomnia, unspecified (principal); R97.20 Elevated prostate specific antigen [PSA]; N39.0 Urinary tract infection, site not specified; M21.40 Flat foot [pes planus] (acquired), unspecified foot; M25.559 Pain in unspecified hip; R01.1 Cardiac murmur, unspecified; R73.03 Prediabetes; Z23 Encounter for immunization

== ENCOUNTER → 2025-05-26 09:00 | Outpatient (BNVA) | payer MEDICARE, BC, SELFPAY | PROVIDERS: PCP Internal Medicine; Visit Provider Physician Assistant Medical | DX: R73.03 Prediabetes (principal); R97.20 Elevated prostate specific antigen [PSA]; M21.40 Flat foot [pes planus] (acquired), unspecified foot; R01.1 Cardiac murmur, unspecified; N39.0 Urinary tract infection, site not specified; M25.559 Pain in unspecified hip; Z28.89 Immunization not carried out for other reason | CPT/HCPCS: 90471; 96127; 99212 ==

== ENCOUNTER 2025-07-14 11:07 | Outpatient (AMB) | payer MEDICARE, BC, SELFPAY ==
[2025-07-14 11:12] VITALS: BP 103/58; PULSE 64; RESP 14; TEMP 36.7; O2SAT 98; BMI 29.7
--- NOTE | 2025-07-14 11:12 | MHC.PC.OV ---
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 - The patient reports the pain began 3-4 weeks ago and is primarily located in the right groin area. - It is exacerbated by coughing, getting out of a car, or getting out of bed. - The patient has noticed that the right side of the groin feels firmer than the left on self-palpation. - In February, the patient was evaluated by Dr. Zavala, who ruled out an inguinal hernia at that time. - The patient reports daily workouts without heavy lifting. - The patient's medication for hypertension was recently changed from benazepril to candesartan and hydrochlorothiazide, which resolved a cough within four or five weeks. - The patient takes finasteride for the prostate and trazodone for sleep. - The patient found a full tablet of trazodone was required for sleep, rather than the initially prescribed half tablet, which led to finishing a 45-day supply sooner than expected. - The patient also reports having taken meloxicam for a painful condition that had persisted for six months, with the pain resolving within 48 hours of starting the medication, and is now asking to discontinue it. - Past diagnostic testing includes normal blood work on May 14, which assessed for anemia, kidney function, and liver function, and a normal CT scan of the abdomen and pelvis in 2020. Social History - Activity: The patient works out every day but does not do heavy lifting. - Diet: The patient is actively trying to reduce the intake of sugars, calories, and carbohydrates. Results - Labs: Blood work from May 14 was reviewed and noted to be normal, including kidney function, liver function, and prostate-specific antigen. - Imaging: A CT scan of the abdomen and pelvis from 2020 was reviewed and noted as normal. FORMERLY [facility], [facility] Medical History Prediabetes Heart murmur Hip pain Flatfoot UTI (urinary tract infection) Insomnia Class 1 obesity with body mass index (BMI) of 32.0 to 32.9 in adult Excessive intake of thiamine Elevated ALT measurement Iron overload Elevated ferritin Seasonal allergies Prostatitis Bladder outlet obstruction Internal hemorrhoids Migraine headache Elevated cholesterol HTN (hypertension) Diverticulosis Erectile dysfunction Gross hematuria Diverticulitis Elevated PSA BPH (benign prostatic hyperplasia) Recurrent left inguinal hernia Left inguinal hernia Surgical History Hx of transurethral resection of prostate Hx of basal cell carcinoma excision Hx of rotator cuff surgery Hx of colonoscopy (~08/11/23) History of appendectomy History of hernia repair History of prostate biopsy Family History Father No problems noted. Mother No problems noted. Social History Housing: Condominium Alcohol intake: current Alcohol intake frequency: a few times a month Patient Tobacco Use Status: Former Tobacco user service: Yes Current occupational status: retired Cognitive needs: No Hearing needs: No Vision needs: Yes (reading glasses) Questionnaire PHQ-9 Over the last 2 weeks, how often have you been bothered by any of the following problems? 1. Little interest or pleasure in doing things: not at all 2. Feeling down, depressed, or hopeless: not at all 3. Trouble falling or staying asleep, or sleeping too much: not at all 4. Feeling tired or having little energy: not at all 5. Poor appetite or overeating: not at all 6. Feeling bad about yourself - or that you are a failure or have let yourself or your family down: not at all 7. Trouble concentrating on things, such as reading the newspaper or watching television: not at all 8. Moving or speaking so slowly that other people could have noticed. Or the opposite - being so fidgety or restless that you have been moving around a lot more than usual: not at all 9. Thoughts that you would be better off or of hurting yourself in some way: not at all Total score: 0 Depression Screening Interpretation: Negative Depression Screening Done: Yes 28859 - PHQ-9 Billing: Yes Source: Developed by Drs. Killian Hood, Lakia West, Sergey Ledezma and colleagues, with an educational yaa from [employer]. Thrive Questionnaire Date Thrive assessed: 05/26/25 I am a: Patient What is your living situation today?: I have a steady place to live Within the past 12 months, did the food you bought not last and you didn't have the money to get more?: Never true Within the past 12 months, did you worry whether your food would run out before you got money to buy more?: Never true Do you have trouble paying for medicines?: No Do you have trouble getting transportation to medical appointments?: No Do you have trouble paying your heating and electricity bill?: No Do you have trouble taking care of your child, family member or friend?: No Do you have trouble with day-to-day activities such as bathing, preparing meals, shopping, managing finances, etc.?: No Are you currently unemployed and looking for a job?: No Are you interested in more education?: No Please select the resources that you would like help with: None THRIVE Score: 0 AUDIT C Alcohol Use Questionnaire (AUDIT-C) 1. How often do you have a drink containing alcohol?: Monthly or less 2. How many drinks containing alcohol do you have on a typical day when you are drinking?: 1 or 2 3. How often do you have six or more drinks on one occasion?: Never Total Score: 1 Score Reviewed/Action Taken: No VEENA-7 AMB Questionnaire VEENA-7 Date VEENA - 7 assessed: 05/26/25 Feeling nervous, anxious, or on edge: 0 = Not at all Not being able to stop or control worryin = Not at all Worrying too much about different things: 0 = Not at all Trouble relaxin = Not at all Being so restless that it is hard to sit still: 0 = Not at all Becoming easily annoyed or irritable: 0 = Not at all Feeling afraid as if something awful might happen: 0 = Not at all Total VEENA-7 score (0-4 normal; 5-9 mild; 10-14 moderate; 15-21 severe): 0 Source: Developed by Drs. Killian Hood, Lakia West, Sergey Ledezma and colleagues, with an educational yaa from [employer]. VEENA-7 Assessment Billing VEENA-7 Assessment Tool: VEENA-7 Assessment 96004 Review of Systems Narrative Review of Systems - Abdominal/Groin: Reports intermittent right groin pain exacerbated by coughing and changes in position. - Constitutional: Reports good appetite. - Psychiatric: Reports anxiety about current symptoms, prompted by a friend's serious diagnosis. - Neurological: Reports a feeling of firmness in the right groin on self-palpation but denies pain when the area is pressed directly. - Respiratory: Denies current cough. - Sleep: Reports requiring a full tablet of trazodone to aid with sleep. Physical exam (Primary Care) Vital Signs: Last Vital Signs Temp 98.0 F 07/14/25 11:12 Pulse 64 07/14/25 11:12 Resp 14 07/14/25 11:12 BP 103/58 L 07/14/25 11:12 Pulse Ox 98 07/14/25 11:12 Oxygen Delivery Method Room Air 07/14/25 11:12 BMI result Body Mass Index 29.7 Tobacco/Smoking Status: Tobacco use Status Tobacco use date assessed 05/26/25 07/14/25 11:14 Patient Tobacco Use Status Former Tobacco user 07/14/25 11:14 PHQ-9: PHQ-9 Score PHQ-9: Total score 0 07/14/25 11:14 Depression Screening Interpretation: Negative Thrive Assessment: Date of Thrive Assessment Date Thrive assessed 05/26/25 07/14/25 11:14 Narrative Physical Exam General: Cooperative and healthy appearing Nutritional Appearance: Well nourished Orientation/consciousness: Patient oriented x3 Limitations: No limitations Head: Normal to inspection General: Appearance normal, both eyes and all related structures Neck: Normal visual inspection Chest: Normal palpation of entire chest wall Respiratory: Normal respiratory effort Neurology: Patient oriented x3 Coding Level of Care Code Complex visit Add On G2211 Diagnoses Abdominal pain R10.9 Additional Codes VEENA-7 Assessment Billing - VEENA-7 Assessment Tool: VEENA-7 Assessment 11668 ([id number]) PHQ-9 - 97894 - PHQ-9 Billing: Yes ([id number]) Assessment & Plan Assessment & Plan (1) Abdominal pain: Code(s): R10.9 - Unspecified abdominal pain Plan: History of Present Illness - The patient is a 75 year old individual presenting with right groin pain. - The patient reports the pain began 3-4 weeks ago and is primarily located in the right groin area. - It is exacerbated by coughing, getting out of a car, or getting out of bed. - The patient has noticed that the right side of the groin feels firmer than the left on self-palpation. - In February, the patient was evaluated by Dr. Gutierrez, who ruled out an inguinal hernia at that time. - The patient reports daily workouts without heavy lifting. - The patient's medication for hypertension was recently changed from benazepril to candesartan and hydrochlorothiazide, which resolved a cough within four or five weeks. - The patient takes finasteride for the prostate and trazodone for sleep. - The patient found a full tablet of trazodone was required for sleep, rather than the initially prescribed half tablet, which led to finishing a 45-day supply sooner than expected. - The patient also reports having taken meloxicam for a painful condition that had persisted for six months, with the pain resolving within 48 hours of starting the medication, and is now asking to discontinue it. - Past diagnostic testing includes normal blood work on May 14, which assessed for anemia, kidney function, and liver function, and a normal CT scan of the abdomen and pelvis in 2020. Social History - Activity: The patient works out every day but does not do heavy lifting. - Diet: The patient is actively trying to reduce the intake of sugars, calories, and carbohydrates. Review of Systems - Abdominal/Groin: Reports intermittent right groin pain exacerbated by coughing and changes in position. - Constitutional: Reports good appetite. - Psychiatric: Reports anxiety about current symptoms, prompted by a friend's serious diagnosis. - Neurological: Reports a feeling of firmness in the right groin on self-palpation but denies pain when the area is pressed directly. - Respiratory: Denies current cough. - Sleep: Reports requiring a full tablet of trazodone to aid with sleep. Physical Exam General: Cooperative and healthy appearing Nutritional Appearance: Well nourished Orientation/consciousness: Patient oriented x3 Limitations: No limitations Head: Normal to inspection General: Appearance normal, both eyes and all related structures Neck: Normal visual inspection Chest: Normal palpation of entire chest wall Respiratory: Normal respiratory effort Neurology: Patient oriented x3 Results - Labs: Blood work from May 14 was reviewed and noted to be normal, including kidney function, liver function, and prostate-specific antigen. - Imaging: A CT scan of the abdomen and pelvis from 2020 was reviewed and noted as normal. Plan - Right Groin Pain: The pain is assessed to be muscular in origin. - Reassurance was provided that the findings are not concerning. - The patient should monitor the pain and follow up if it worsens. - Medication Management: Meloxicam is to be discontinued. - A new 90-day prescription for trazodone, one tablet daily, has been sent to the pharmacy. - Health Maintenance: The patient is encouraged to continue efforts to reduce sugar and calorie intake. Discussion Notes I discussed with the patient that the evaluation of the patient's right groin pain, including a physical exam, suggests the discomfort is muscular in nature rather than from a significant hernia. Although a trace hernia was noted, it is not concerning at this time. I provided reassurance, addressing the patient's anxiety related to a friend's health outcome, and confirmed that the findings are not alarming. We reviewed past normal labs and a normal 2020 [address] scan. We agreed to discontinue meloxicam as the previous issue has resolved. I informed the patient that I sent a new 90-day prescription for trazodone at a dose of one tablet daily to address the patient's sleep needs and refill issue. I advised the patient to return for re-evaluation if the pain worsens. Patient Instructions - Your right groin pain is likely due to a muscle issue and is not concerning at this time. - Please contact the office if the pain gets worse. - You can stop taking the meloxicam medication. - I have sent a new 90-day supply of your sleep aid, trazodone, to your pharmacy. - Continue your efforts to reduce sugar, calories, and carbohydrates in your diet. Plan Plan - Right Groin Pain: The pain is assessed to be muscular in origin. - Reassurance was provided that the findings are not concerning. - The patient should monitor the pain and follow up if it worsens. - Medication Management: Meloxicam is to be discontinued. - A new 90-day prescription for trazodone, one tablet daily, has been sent to the pharmacy. - Health Maintenance: The patient is encouraged to continue efforts to reduce sugar and calorie intake. Discussion Notes I discussed with the patient that the evaluation of the patient's right groin pain, including a physical exam, suggests the discomfort is muscular in nature rather than from a significant hernia. Although a trace hernia was noted, it is not concerning at this time. I provided reassurance, addressing the patient's anxiety related to a friend's health outcome, and confirmed that the findings are not alarming. We reviewed past normal labs and a normal 2020 [address] scan. We agreed to discontinue meloxicam as the previous issue has resolved. I informed the patient that I sent a new 90-day prescription for trazodone at a dose of one tablet daily to address the patient's sleep needs and refill issue. I advised the patient to return for re-evaluation if the pain worsens. Patient Instructions - Your right groin pain is likely due to a muscle issue and is not concerning at this time. - Please contact the office if the pain gets worse. - You can stop taking the meloxicam medication. - I have sent a new 90-day supply of your sleep aid, trazodone, to your pharmacy. - Continue your efforts to reduce sugar, calories, and carbohydrates in your diet. Medications: Changed From trazodone 50 mg PO BEDTIME PRN 90 tabs 3RF sleep To trazodone 50 mg PO BEDTIME PRN 90 tabs 1RF sleep 90 days Discontinued meloxicam Discontinued Reason: Doctor's Order 15 mg PO DAILY 90 tabs 3RF
== END 2025-07-14 11:43 | disposition home or self-care (01) ==
LOC: HO.HMCSH 11:07
PROVIDERS: PCP Internal Medicine; Visit Provider Internal Medicine
DX: R10.9 Unspecified abdominal pain (principal)

== ENCOUNTER → 2025-07-14 11:07 | Outpatient (BNVA) | payer MEDICARE, BC, SELFPAY | PROVIDERS: PCP Internal Medicine; Visit Provider Internal Medicine | DX: R10.9 Unspecified abdominal pain (principal); Z13.31 Encounter for screening for depression | CPT/HCPCS: 96127; 99212 ==